=== PATIENT | male | born 1980 | race Caucasian/White ===

== ENCOUNTER 2023-11-20 12:44 | Emergency (ER) | payer OTHER, SELFPAY ==
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
[2023-11-20 12:46] VITALS: BP 128/68; PULSE 128; O2SAT 96
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
[2023-11-20 12:59] VITALS: BP 124/65; PULSE 101; RESP 22; TEMP 36.6; O2SAT 95; BMI 53.8
[2023-11-20] MEDS: hydrOXYzine HCL 50 MG TABLET PO (14:06)
[2023-11-20] MEDS: Nicotine Polacrilex 2 MG GUM BUCCAL (14:06)
[2023-11-20] MEDS: OLANZapine 10 MG TABLET PO (14:17)
--- NOTE | 2023-11-20 14:27 | PC.NURSE ---
Patient attempted to elope from dept x 3, security at bedside, waiting for provider to close lip lac, patient to go to pod after repair. Patient mildly compliant to redirection, currently standing in hallway singing the national anthem.
--- NOTE | 2023-11-20 14:56 | PC.NURSE ---
Patient urinated all over the floor, redirected back to sit on stretcher. VS stable.
[2023-11-20 14:57] VITALS: BP 141/84; PULSE 112; RESP 20; O2SAT 96
--- NOTE | 2023-11-20 15:25 | PC.NURSE ---
Provider attempted to elope department again, provider to bedside to speak with patient about repairing lip, patient refused. [facility]
--- NOTE | 2023-11-20 16:29 | PC.NURSE ---
Patient has again attempted to elope from the department, redirected back to room while singing daylin krishnan. POD RN Michael called, report given, patient will go to pod during next elopement attempt. Patient to return to [facility] via EMS, eta for EMS [id number].
--- NOTE | 2023-11-20 17:11 | PC.NURSE ---
Called Gregory, left message about patient returning w/ call back number if any questions.
[2023-11-20 17:38] VITALS: BP 141/84; PULSE 112; RESP 20; TEMP 36.6; O2SAT 96
== END 2023-11-20 17:40 | disposition home or self-care (01) ==
PROVIDERS: Emergency Provider Student in an Organized Health Care Education/Training Program
DX: S01.511A Laceration without foreign body of lip, initial encounter (principal); Y04.2XXA Assault by strike against or bumped into by another person, initial encounter; Y93.89 Activity, other specified; Y92.89 Other specified places as the place of occurrence of the external cause; Y99.9 Unspecified external cause status
CPT/HCPCS: 12011; 70450; 70486; 72125; 99284

== ENCOUNTER 2023-11-20 22:02 | Emergency (ER) | payer OTHER, SELFPAY ==
[2023-11-20 22:17] VITALS: BP 138/80; PULSE 64; O2SAT 98
[2023-11-20 22:22] VITALS: BP 105/45; PULSE 98; RESP 22; TEMP 36.6; O2SAT 97; BMI 47.9
--- NOTE | 2023-11-21 00:05 | ED.PSYCH ---
HPI - Psych General Chief Complaint: Behavioral Concerns Stated Complaint: WOUND CHECK Time Seen by Provider: 11/20/23 23:29 History of Present Illness HPI Narrative: Patient is a 43-year-old male had a laceration to his lower lip that was suture earlier in the day went back to the psych facility at approximately 17:30. Upon arrival patient physically removed his own stitches. Thought with staff. Patient was given medication including Haldol 10 mg, Benadryl 50 mg, Ativan 2 mg. On arrival to the emergency department patient is calm and cooperative has no complaints. He was able to ambulate to the bathroom without any difficulties. He denies any suicidal homicidal ideation. Related Data Previous Rx's ?Medication ?Instructions ?Recorded amoxicillin 875 mg-potassium 1 tab PO BID 10 days #20 tabs 11/20/23 clavulanate 125 mg tablet Allergies Allergy/AdvReac Type Severity Reaction Status Date / Time No Known Allergies Allergy Verified 11/20/23 22:23 Review of Systems Review of Systems: No fever no chills no chest pain or systemic complaints Yes all other systems are reviewed and are negative [facility] Past Medical History Attestation statement: The following information was validated with the patient. Social History Social History Unable to assess alcohol history related to: Refusing to respond Advance Directives: No Advance Directives Information Provided: No Physical Exam Vital Signs: Vital Signs: Last Vital Signs Temp 97.8 F 11/20/23 22:22 Pulse 98 11/20/23 22:22 Resp 22 H 11/20/23 22:22 BP 105/45 L 11/20/23 22:22 Pulse Ox 97 11/20/23 22:22 O2 Del Method Room Air 11/20/23 22:22 BMI result Body Mass Index 47.9 Appearance: Alert. Oriented X3. No acute distress. Eyes: Pupils equal, round and reactive to light. ENT: Pharynx normal. Lower lip showed a small laceration approximately 3 cm in size. Seems to be open. The sutures were all removed. Neck: Normal inspection. Neck supple. No lymph nodes noted. No crepitus CVS: Normal heart rate and rhythm. Pulses normal. Normal S1 and S2 Respiratory: No respiratory distress. Breath sounds normal. No Wheezing. No rales Abdomen: Soft and nontender. No rigidity. No distention. good BS x4 Skin: Skin warm and dry. Normal skin color. Normal skin turgor. Extremities: No lower extremity edema. Neurovascular intact to all extremities. No Lacerations. No Rash Neuro: Oriented X 3. No motor deficit. No sensory deficit. Moving all extermities. No slurred speech Medical Decision Making Medical Decision Making [facility] Narrative: [place] this time we should not try to close the wound given the wound is extremely 30. It was open earlier. Patient is cooperative not in any acute distress. Came from a psychiatric facility. Will contact [facility] about patient's disposition Nursing staff discussed with [facility]. They feel comfortable accepting patient back. He is in no acute distress. In stable condition. Differential Diagnosis Differential Diagnoses: The differential diagnosis associated with the presentation includes Laceration to the lip, agitation Lab Data [facility] Lab Attestation statement: I reviewed the patient's lab results. External Record Review External record reviewed: Outpatient record Prescription Management I considered prescription management with: Antibiotic No need for additional antibiotics. Patient already on Augmentin Chronic Conditions Psychiatric Discharge Plan Discharge Clinical Impression: Stress Patient Disposition: Home, Self-Care Instructions: Stress (ED) Prescriptions: No Action amoxicillin-pot clavulanate 875-125 mg tablet 1 tab PO BID 10 Days Qty: 20 0RF Referrals: Physician,None [Primary Care Provider] - 11/24/23 Print Language: [place]
[2023-11-21 01:13] VITALS: BP 00/00; PULSE 0; RESP 16; TEMP -17.7; TEMP 0
== END 2023-11-21 01:16 | disposition home or self-care (01) ==
PROVIDERS: Emergency Provider Emergency Medicine Emergency Medical Services
DX: F43.9 Reaction to severe stress, unspecified (principal); Z48.00 Encounter for change or removal of nonsurgical wound dressing
CPT/HCPCS: 99282

== ENCOUNTER 2023-11-23 13:39 | Inpatient (IN) | payer MEDICARE, SELFPAY ==
--- NOTE | ~2023-11-23 | CT_ITS ---
CT HEAD WITHOUT CONTRAST CLINICAL HISTORY: Altered mental status TECHNIQUE: CT of the brain was performed from the skull base through the vertex using a routine non-contrast protocol. All CT exams at this location are performed using dose optimization techniques as appropriate to a performed exam including at least one of the following: * Automated exposure control * Adjustment of the mA and/or kV according to patient size (this includes techniques or standardized protocols for targeted exams where dose is matched to indication / reason for exam; i/e/ extremities or head) * Use of iterative reconstructive technique DLP: 927 mGy-cm COMPARISON: None. RESULTS: There is no evidence of acute intracranial hemorrhage, acute large vessel infarct, midline shift or mass effect. The carranza-white differentiation is preserved. The ventricles and sulci are within normal limits in size and configuration. There is no evidence of hydrocephalus. There are no extraaxial collections. Osseous structures are intact. Paranasal sinuses and mastoid air cells are well aerated. CT/CT head/brain wo IV con IMPRESSION: Unremarkable non-contrast CT of the brain.
--- NOTE | ~2023-11-23 | CT_ITS ---
EXAMINATION: CT ANGIOGRAM CHEST CLINICAL INFORMATION: Abnormal chest x-ray COMPARISON: Chest x-ray on 11/23/2023 TECHNIQUE: Multiple axial images were obtained through the chest after the administration of 75 mL of Omnipaque 350 intravenous contrast. Extensive vascular post-processing including two-dimensional and three-dimensional reformatted images were created and reviewed on an independent workstation. This CT examination was performed using dose optimization techniques as appropriate, variously including the following: *Automated exposure control *Adjustment of mA and/or kV according to patient size (this includes techniques or standardized protocols for targeted exams where dose is matched to indication/reason for exam; i.e. extremities or head) *Use of iterative reconstruction technique DLP: 613 mGy-cm FINDINGS: Heart/Aorta: The heart is globally normal in size. The coronary arteries arise from the expected coronary sinuses; there is no anomaly of coronary arterial origin. The thoracic aorta is normal in course and caliber. There is no evidence of aortic dissection, intramural hematoma, or atherosclerotic penetrating ulcer. Aortic arch anatomy is conventional. Other Cardiovascular: The main pulmonary artery is normal in caliber. The well opacified portions of the pulmonary arterial system are patent. There is no pericardial effusion or pericardial thickening. Mediastinum/Gwen: Multiple prominent mediastinal lymph nodes. Pleura: The pleural surfaces are normal bilaterally. There is no pleural effusion. There is no pneumothorax. Lungs: Mild consolidation and tree-in-bud opacities of the bilateral lower lobes, left greater than right. Airways: The central airways are patent. The peripheral airways are normal. There is no bronchiectasis. Upper Abdomen: The incompletely imaged upper abdomen is unremarkable. Musculoskeletal: There is no aggressive osseous lesion. The structures of the chest wall, including the bones, are normal for age. CT/CT angio chest aorta IMPRESSION: 1. No acute aortic abnormality. 2. Mild consolidation and tree-in-bud opacities of the bilateral lower lobes, left greater than right, likely infectious/inflammatory in etiology. 3. Multiple prominent mediastinal lymph nodes, likely reactive.
--- NOTE | ~2023-11-23 | XR_ITS ---
EXAMINATION: XR CHEST CLINICAL INFORMATION: Chest pain COMPARISON: None available. TECHNIQUE: Frontal view of the chest was obtained. FINDINGS: Heart is normal in size. There is some widening of the superior mediastinum especially in the right paratracheal stripe. There is increased perihilar groundglass opacities. No pleural effusions. Plate-screw fixation with old fracture of the left clavicle XR/XR chest 1V IMPRESSION: 1. Widening of the superior mediastinum. Recommend further evaluation with CT scan of the chest. 2. Increased perihilar groundglass opacities.
[2023-11-23 13:46] VITALS: BP 123/77; BP 86/50; PULSE 74; PULSE 76; RESP 18; TEMP 36.7; O2SAT 98; BMI 50.7
--- NOTE | 2023-11-23 13:46 | ECG_ITS ---
Test Reason : CHEST PAIN Blood Pressure : / mmHG Vent. Rate : 076 BPM Atrial Rate : 076 BPM P-R Int : 164 ms QRS Dur : 090 ms QT Int : 374 ms P-R-T Axes : 065 070 054 degrees QTc Int : 420 ms Artifact in tracing Normal sinus rhythm Normal ECG No previous ECGs available Referred By: Mani Recinos Electronically Signed By:SOPHIA BERMUDEZ
[2023-11-23 13:50] LABS: Glucose, Whole Blood 84 mg/dL (60-115)
[2023-11-23 13:51] VITALS: BP 123/77; PULSE 74; RESP 18; TEMP 36.7; O2SAT 98
[2023-11-23 14:20] LABS: MANUAL DIFF FLAG NO
[2023-11-23 14:21] LABS: Basophils Percent Auto 0.5 % (0-2); Eosinophils Absolute Auto 0.1 X10*3/uL (0.0-0.4); Eosinophils Percent Auto 1.7 % (0-4); Hemoglobin 12.3 g/dl (14.0-18.0); Imm Gran Abs Auto 0.05 X10*3/uL (0.00-0.03); Imm Gran Pct Auto 0.8 % (0.0-0.4); Lymphocytes Absolute Auto 1.1 X10*3/uL (1.2-4.9); Lymphocytes Percent Auto 16.7 % (20-40); Mean Corpuscular HGB Conc 33.2 g/dl (31.0-36.0); Mean Corpuscular Volume 87.3 fL (80.0-98.0); Mean Platelet Volume 10.3 fL (9.4-12.4); Monocytes Absolute Auto 0.7 X10*3/uL (0.1-1.2); Monocytes Percent Auto 11.2 % (2-11); Neutrophils Absolute Auto 4.6 x10*3/uL (2.0-8.3); Neutrophils Percent Auto 69.1 % (45-73); Platelet Count 210 X10*3/uL (160-400); Red Blood Count 4.24 X10*6/uL (4.60-5.80); Red Cell Distribution Width 13.5 % (11.0-16.0); White Blood Count 6.6 X10*3/uL (4.8-10.8)
--- NOTE | 2023-11-23 14:26 | ED_ITS ---
HPI - General Adult General Chief complaint: General Medical Stated complaint: HYPOTENSION ABNORMAL LABS Time Seen by Provider: 11/23/23 13:51 Source: EMS Mode of arrival: EMS History of Present Illness HPI narrative: This is a 43 years old male sent to the emergency department from [facility] cause more lethargic. According to [facility] he has ammonia level was 47. Also they reported that he was hypotensive with a blood pressure 95/56. The patient was admitted to the psychiatric facility on November 16 from [facility], he has history of bipolar disorder and prior psych inpatient hospitalization. Onset (ago): day(s) (1) Radiation: non-radiation Severity: moderate Treatments prior to arrival: none Related Data Home Medications ?Medication ?Instructions ?Recorded ?Confirmed acetaminophen 325 mg tablet 650 mg PO Q4H PRN Pain 11/23/23 11/23/23 albuterol sulfate 90 mcg/actuation 2 puff inhalation Q4H PRN 11/23/23 11/23/23 aerosol inhaler Shortness Of Breath Or Wheezing atorvastatin 80 mg tablet 80 mg PO BEDTIME 11/23/23 11/23/23 benzocaine 15 mg-menthol 3.6 mg 1 zonia mucous membrane Q2H PRN Sore 11/23/23 11/23/23 lozenges Throat benztropine 1 mg tablet 2 mg PO BID 11/23/23 11/23/23 chlorpromazine 100 mg tablet 100 mg PO Q8H PRN 11/23/23 11/23/23 agitation/psychosis diphenhydramine HCl 50 mg capsule 50 mg PO BEDTIME 11/23/23 11/23/23 diphenhydramine HCl 50 mg capsule 50 mg PO Q8H PRN Anxiety 11/23/23 11/23/23 divalproex 500 mg tablet,extended 1,000 mg PO BID 11/23/23 11/23/23 release 24 hr docusate sodium 100 mg capsule 100 mg PO BID PRN Constipation 11/23/23 11/23/23 hydrocortisone 1 % topical cream 1 appl topical BID Hemorrhoids 11/23/23 11/23/23 ibuprofen 400 mg tablet 800 mg PO Q6H PRN 11/23/23 11/23/23 Body-ache/toothache lactulose 10 gram/15 mL (15 mL) 20 g PO DAILY 11/23/23 11/23/23 oral solution levothyroxine 75 mcg tablet 75 mcg PO DAILY 11/23/23 11/23/23 lidocaine 4 % topical patch 2 patch topical DAILY 11/23/23 11/23/23 lisinopril 20 mg tablet 40 mg PO DAILY 11/23/23 11/23/23 lorazepam 1 mg tablet 2 mg PO BEDTIME 11/23/23 11/23/23 lorazepam 1 mg tablet 2 mg PO BID PRN Anxiety 11/23/23 11/23/23 melatonin 3 mg tablet 6 mg PO BEDTIME PRN Sleep 11/23/23 11/23/23 metoprolol succinate 25 mg 25 mg PO DAILY 11/23/23 11/23/23 tablet,extended release 24 hr nicotine (polacrilex) 2 mg gum 2 mg buccal Q2H PRN Nicotine 11/23/23 11/23/23 Cravings nicotine 21 mg/24 hr daily 1 patch transdermal DAILY 11/23/23 11/23/23 transdermal patch pantoprazole 40 mg tablet,delayed 40 mg PO DAILY 11/23/23 11/23/23 release Previous Rx's ?Medication ?Instructions ?Recorded amoxicillin 875 mg-potassium 1 tab PO BID 10 days #20 tabs 11/20/23 clavulanate 125 mg tablet Allergies Allergy/AdvReac Type Severity Reaction Status Date / Time No Known Allergies Allergy Verified 11/23/23 13:48 Review of Systems 2 Review of Systems: Yes Unobtainable due to mental condition [facility] Past Medical History Medical History History of substance abuse HTN (hypertension) Bipolar disorder GERD (gastroesophageal reflux disease) Social History Social History Unable to assess alcohol history related to: Refusing to respond Patient Tobacco Use Status: Current everyday Tobacco user Advance Directives: No Advance Directives Information Provided: No Do you have a plan to hurt others: No Plan Nutrition Risks: No Nutritional Risk Physical Exam ED Vital Signs: Vital Signs - 24 hr 11/23/23 13:46 11/23/23 13:51 11/23/23 16:47 Temperature 98.1 F 98.1 F 97.3 F Pulse Rate 74 74 77 Respiratory Rate 18 18 24 H Blood Pressure 123/77 123/77 108/53 L Pulse Oximetry 98 98 98 Oxygen Delivery Method Room Air Room Air Aerosol Mask BMI result Body Mass Index 50.7 He is lethargic but easily arousable he is able to give me his name Const General: well developed and patient obtunded Nutritional Appearance: obese Orientation/consciousness: patient obtunded HENMT Head: Yes normal to inspection Mouth: Normal oral and palatal mucosa present Neck Neck: Yes normal visual inspection Chest Chest palpation & inspection: normal inspection of the chest Resp Effort & Inspection: normal respiratory effort Cardio Jugular venous distension: no JVD GI Inspection: Yes normal to inspection Palpation (GI): Soft to palpation, not firm and nontender Auscultation: normal bowel sounds Skin General skin exam: no rashes or lesions noted and elasticity normal Neuro Other: Patient is lethargic but arousable he is able to tell me his name. General: patient obtunded Course Reevaluation(s) Reevaluation #1: VBG essentially normal ammonia level is normal, lactic acid also is normal. He is normotensive here afebrile. He is hyponatremic with a sodium of 123 anticipate admission Medications Administered Generic Name Dose Route Start Last Admin Trade Name Freq PRN Reason Stop Dose Admin Amoxicillin/Clavulanate Potassium 875 mg 11/23/23 21:00 11/23/23 20:43 Amoxicillin/Potassium Clav 875 Mg Tablet PO 875 mg BID DELORIS Administration Atorvastatin Calcium 80 mg 11/23/23 21:00 11/23/23 20:44 Atorvastatin Calcium 80 Mg Tablet PO 80 mg BEDTIME DELORIS Administration Benztropine Mesylate 2 mg 11/23/23 21:00 11/23/23 20:43 Benztropine Mesylate 1 Mg Tablet PO 2 mg BID DELORIS Administration Chlorpromazine HCl 100 mg 11/23/23 17:47 11/23/23 21:48 Chlorpromazine Hcl 100 Mg Tablet PO 100 mg Q8H PRN Administration agitation/psychosis Diphenhydramine HCl 25 mg 11/23/23 21:00 11/23/23 20:44 Diphenhydramine Hcl 25 Mg Capsule PO 25 mg BEDTIME DELORIS Administration Diphenhydramine HCl 25 mg 11/23/23 17:47 11/24/23 04:39 Diphenhydramine Hcl 25 Mg Capsule PO 25 mg Q8H PRN Administration Anxiety Divalproex Sodium 1,000 mg 11/23/23 21:00 11/23/23 20:43 Divalproex Sodium Er 500 Mg Tab.Er.24h PO 1,000 mg BID DELORIS Administration Enoxaparin Sodium 40 mg 11/23/23 20:00 11/23/23 20:42 Enoxaparin Sodium 40 Mg/0.4 Ml Syringe SUBCUT 40 mg Q24H DELORIS Administration Hydrocortisone 1 appl 11/23/23 21:00 11/23/23 20:43 Hydrocortisone 1 % Cream 28.35 Gm Tube TOPICAL 1 appl BID DELORIS Administration Protocol Ibuprofen 800 mg 11/23/23 17:47 11/24/23 04:41 Ibuprofen 800 Mg Tablet PO 800 mg Q6H PRN Administration Body-ache/toothache Levothyroxine Sodium 75 mcg 11/24/23 06:00 11/24/23 05:34 Levothyroxine Sodium 75 Mcg Tablet PO 75 mcg DAILY@0600 DELORIS Administration Lorazepam 1 mg 11/23/23 21:00 11/23/23 20:43 Lorazepam 1 Mg Tablet PO 1 mg BEDTIME DELORIS Administration Lorazepam 1 mg 11/23/23 17:47 11/24/23 04:38 Lorazepam 1 Mg Tablet PO 1 mg BID PRN Administration Anxiety Omeprazole 20 mg 11/24/23 06:30 11/24/23 05:34 Omeprazole 20 Mg Capsule.Dr PO 20 mg DAILY@0630 [facility] Administration Sodium Chloride 3 ml 11/24/23 00:00 11/24/23 00:54 0.9 % Sodium Chloride Flush 3 Ml Syringe IVFLUSH Not Given QSHIFT DELORIS Discontinued Medications Generic Name Dose Route Start Last Admin Trade Name Nicolásq PRN Reason Stop Dose Admin Albuterol Sulfate 4 puff 11/23/23 19:44 11/23/23 22:57 Albuterol Sulfate 90 Mcg 8 Gm Inhaler INHALE 11/23/23 19:45 Not Given ONCE ONE Sodium Chloride 1,000 mls @ 999 mls/hr 11/23/23 14:00 11/23/23 15:20 Ns IVCONT 11/23/23 15:00 Infused .Q1H1M DELORIS Infusion Sodium Chloride 1,000 mls @ 125 mls/hr 11/23/23 15:00 11/23/23 19:45 Ns IVCONT 11/24/23 01:14 0 mls/hr .Q8H DELORIS Infusion Iohexol 100 ml 11/23/23 15:59 11/23/23 15:59 Iohexol 350 Mg/Ml 100 Ml Infus..Btl IV 11/23/23 16:00 75 ml ONCE ONE Administration Sodium Chloride 2 gm 11/23/23 20:05 11/23/23 20:43 Sodium Chloride Tab 1 Gm Tablet PO 11/23/23 20:06 2 gm ONCE ONE Administration Sodium Zirconium Cyclosilicate 10 gm 11/23/23 19:43 11/23/23 20:42 Sodium Zirconium Cyclosilicate 10 Gm Powd.Pack PO 11/23/23 19:44 10 gm ONCE ONE Administration Procedures EJ/Peripheral Line Arm R: Time Out Performed: Yes Skin Cleansed in Sterile Fashion: Yes Size (gauge): 18 IV Secured and Dressing Applied: Yes Patient Tolerated Procedure: well Additional Comments: I was asked by RN to place an IV difficult IV access, under ultrasound-guided cannulated right deep brachial vein with 18 gauge catheter labs obtain good flash. Medical Decision Making Medical Decision Making [facility] Narrative: Patient is a we may altered mental status we get labs ammonia VBG Differential Diagnosis Differential Diagnoses: The differential diagnosis associated with the presentation includes Hyperammonemia hypercapnic respiratory failure Admission/Observation Consideration of admission/observation: Escalation of care including admission/observation considered Consult Healthcare Provider Management of the patient was discussed with: Hospitalist Lab Data [facility] Lab Attestation statement: I reviewed the patient's lab results. 11/24/23 06:13 11/24/23 06:13 Labs: Lab Results 11/23/23 11/23/23 11/23/23 Range/Units 13:46 14:15 14:19 WBC 6.6 (4.8-10.8) X10*3/uL RBC 4.24 L (4.60-5.80) X10*6/uL Hgb 12.3 L (14.0-18.0) g/dl Hct 37.0 L (42.0-52.0) % MCV 87.3 (80.0-98.0) fL MCH 29.0 (27.0-33.0) pg MCHC 33.2 (31.0-36.0) g/dl RDW 13.5 (11.0-16.0) % Plt Count 210 (160-400) X10*3/uL MPV 10.3 (9.4-12.4) fL Immature Gran % (Auto) 0.8 H (0.0-0.4) % Neut % (Auto) 69.1 (45-73) % Lymph % (Auto) 16.7 L (20-40) % Newton % (Auto) 11.2 H (2-11) % Eos % (Auto) 1.7 (0-4) % Baso % (Auto) 0.5 (0-2) % Lymph # (Auto) 1.1 L (1.2-4.9) X10*3/uL Newton # (Auto) 0.7 (0.1-1.2) X10*3/uL Eos # (Auto) 0.1 (0.0-0.4) X10*3/uL Baso # (Auto) 0.0 (0.0-0.2) X10*3/uL Abs Immat Gran (auto) 0.05 H (0.00-0.03) X10*3/uL Absolute Neuts (auto) 4.6 (2.0-8.3) x10*3/uL Absolute Nucleated RBC 0.000 (0.0-0.012) X10*3/uL Nucleated RBC % (auto) 0.0 (0.0-0.2) /100WBC VBG pH 7.44 H (7.32-7.43) VBG pCO2 34 mmHg VBG pO2 48 mmHg VBG HCO3 23 (22-26) mmol/L VBG O2 Saturation 79.0 % VBG Base Excess 0.3 mmol/L Sodium 123 L (135-145) mmol/L Potassium 5.1 (3.3-5.1) mmol/L Chloride 90 L (96-108) mmol/L Carbon Dioxide 24 (22-29) mmol/L Anion Gap 14 (12-20) BUN 22 H (9-16) mg/dL Creatinine 1.29 (0.5-1.4) mg/dL Estim Creat Clear Calc 110.3 Estimated GFR > 60 POC Glucose 84 (60-115) mg/dL Random Glucose 83 (60-115) mg/dL Osmolality (281-305) mosm/kg Lactic Acid (0.5-2.0) mmol/L Calcium 9.1 (8.4-10.2) mg/dL Total Bilirubin 0.4 (0.0-1.0) mg/dL AST 21 (5-37) U/L ALT 20 (0-40) U/L Alkaline Phosphatase 35 L (39-117) U/L Ammonia 29 (13-55) umol/L Troponin I High Sens < 2.7 (<3.5-35.0) ng/L Total Protein 6.5 (6.5-8.0) g/dL Albumin 3.7 (3.5-5.0) g/dL TSH 6.58 H (0.32-4.0) uIU/mL Free T4 0.93 (0.71-1.85) ng/dL Urine Color Urine Appearance Urine pH (5.0-9.0) Ur Specific Sagle (1.005-1.025) Urine Protein (Neg-Trace) mg/dL Urine Glucose (UA) (Negative) mg/dL Urine Ketones (Negative) mg/dL Urine Blood (Negative) Urine Nitrite (Negative) Ur Leukocyte Esterase (Negative) Urine RBC (0-2) /HPF Urine WBC (0-5) /HPF Ur Squamous Epith Cells (0-2) /HPF Urine Bacteria (None Seen) Hyaline Casts (0-2) /LPF Urine Osmolality (373-1093) mosm/kg Ur Random Sodium mmol/L Urine Creatinine mg/dL Urine Opiates Screen (Not Detect) Ur Buprenorphine Scrn (Not Detect) ng/mL Ur Oxycodone Screen (Not Detect) ng/mL Urine Methadone Screen (Not Detect) ng/mL Urine Fentanyl Screen (Not Detect) Ur Barbiturates Screen (Not Detect) Valproic Acid (50.0-100.0) mcg/mL Ur Phencyclidine Scrn (Not Detect) Ur Amphetamines Screen (Not Detect) U Benzodiazepines Scrn (Not Detect) Urine Cocaine Screen (Not Detect) U Marijuana (THC) Screen (Not Detect) 11/23/23 11/23/23 11/23/23 Range/Units 14:37 15:34 17:24 WBC (4.8-10.8) X10*3/uL RBC (4.60-5.80) X10*6/uL Hgb (14.0-18.0) g/dl Hct (42.0-52.0) % MCV (80.0-98.0) fL MCH (27.0-33.0) pg MCHC (31.0-36.0) g/dl RDW (11.0-16.0) % Plt Count (160-400) X10*3/uL MPV (9.4-12.4) fL Immature Gran % (Auto) (0.0-0.4) % Neut % (Auto) (45-73) % Lymph % (Auto) (20-40) % Newton % (Auto) (2-11) % Eos % (Auto) (0-4) % Baso % (Auto) (0-2) % Lymph # (Auto) (1.2-4.9) X10*3/uL Newton # (Auto) (0.1-1.2) X10*3/uL Eos # (Auto) (0.0-0.4) X10*3/uL Baso # (Auto) (0.0-0.2) X10*3/uL Abs Immat Gran (auto) (0.00-0.03) X10*3/uL Absolute Neuts (auto) (2.0-8.3) x10*3/uL Absolute Nucleated RBC (0.0-0.012) X10*3/uL Nucleated RBC % (auto) (0.0-0.2) /100WBC VBG pH (7.32-7.43) VBG pCO2 mmHg VBG pO2 mmHg VBG HCO3 (22-26) mmol/L VBG O2 Saturation % VBG Base Excess mmol/L Sodium (135-145) mmol/L Potassium (3.3-5.1) mmol/L Chloride (96-108) mmol/L Carbon Dioxide (22-29) mmol/L Anion Gap (12-20) BUN (9-16) mg/dL Creatinine (0.5-1.4) mg/dL Estim Creat Clear Calc Estimated GFR POC Glucose (60-115) mg/dL Random Glucose (60-115) mg/dL Osmolality 272 L (281-305) mosm/kg Lactic Acid 0.8 (0.5-2.0) mmol/L Calcium (8.4-10.2) mg/dL Total Bilirubin (0.0-1.0) mg/dL AST (5-37) U/L ALT (0-40) U/L Alkaline Phosphatase (39-117) U/L Ammonia (13-55) umol/L Troponin I High Sens (<3.5-35.0) ng/L Total Protein (6.5-8.0) g/dL Albumin (3.5-5.0) g/dL TSH (0.32-4.0) uIU/mL Free T4 (0.71-1.85) ng/dL Urine Color Yellow Urine Appearance Clear Urine pH 6.0 (5.0-9.0) Ur Specific Sagle 1.010 (1.005-1.025) Urine Protein Negative (Neg-Trace) mg/dL Urine Glucose (UA) Negative (Negative) mg/dL Urine Ketones Negative (Negative) mg/dL Urine Blood Negative (Negative) Urine Nitrite Negative (Negative) Ur Leukocyte Esterase Negative (Negative) Urine RBC 0-2 (0-2) /HPF Urine WBC 0-5 (0-5) /HPF Ur Squamous Epith Cells 0-2 (0-2) /HPF Urine Bacteria None Seen (None Seen) Hyaline Casts 0-2 (0-2) /LPF Urine Osmolality 212 L (373-1093) mosm/kg Ur Random Sodium < 20.0 mmol/L Urine Creatinine 54.49 mg/dL Urine Opiates Screen Not Detected (Not Detect) Ur Buprenorphine Scrn Not Detected (Not Detect) ng/mL Ur Oxycodone Screen Not Detected (Not Detect) ng/mL Urine Methadone Screen Not Detected (Not Detect) ng/mL Urine Fentanyl Screen Not Detected (Not Detect) Ur Barbiturates Screen Not Detected (Not Detect) Valproic Acid 57.7 (50.0-100.0) mcg/mL Ur Phencyclidine Scrn Not Detected (Not Detect) Ur Amphetamines Screen Not Detected (Not Detect) U Benzodiazepines Scrn Not Detected (Not Detect) Urine Cocaine Screen Not Detected (Not Detect) U Marijuana (THC) Screen Not Detected (Not Detect) Independent Interpretation I performed an independent interpretation of an: EKG Interpretation: Sinus tachycardia rate [address]-T changes Independent Historian Clinical information obtained from an independent historian. History obtained from or confirmed by: EMS and Other (record from [facility]) Critical Care Time Critical Care Time Critical Care Time: Yes Total Critical Care Time: 60 Attestation: altered mental status,hyponatremia,speaking to EMS,reviewing record from [facility] hospital,taking care of the pt and talking to hospitalist Discharge Plan Discharge Clinical Impression: Acute hyponatremia Altered mental status Qualifiers: Altered mental status type: unspecified Qualified Code(s): R41.82 - Altered mental status, unspecified Patient Disposition: Admitted As Inpatient
[2023-11-23 14:27] LABS: VBG Base Excess 0.3 mmol/L; VBG HCO3 23 mmol/L (22-26); VBG pCO2 34 mmHg; VBG pH 7.44 (7.32-7.43); VBG pO2 48 mmHg
[2023-11-23 14:29] LABS: Ammonia 29 umol/L (13-55)
[2023-11-23 14:29] LABS: Venous Blood Gas Refer to POC result
[2023-11-23 14:36] LABS: Alanine Aminotransferase 20 U/L (0-40); Albumin Level 3.7 g/dL (3.5-5.0); Alkaline Phosphatase 35 U/L (39-117); Anion Gap 14 (12-20); Aspartate Amino Transferase 21 U/L (5-37); Bilirubin Total 0.4 mg/dL (0.0-1.0); Blood Urea Nitrogen 22 mg/dL (9-16); Calcium 9.1 mg/dL (8.4-10.2); Carbon Dioxide 24 mmol/L (22-29); Chloride 90 mmol/L (96-108); Creatinine Clr Calc Pharmacy 110.3; Estimated Glomerular Filt Rate > 60; Glucose Random 83 mg/dL (60-115); Potassium 5.1 mmol/L (3.3-5.1); Sodium 123 mmol/L (135-145); Total Protein 6.5 g/dL (6.5-8.0)
[2023-11-23] MEDS: 0.9 % Sodium Chloride 1,000 ML 999 ML IVCONT (14:39)
[2023-11-23 14:51] LABS: Troponin-I High Sensitivity < 2.7 ng/L (<3.5-35.0)
[2023-11-23] MEDS: 0.9 % Sodium Chloride 1,000 ML 100 ML IVCONT (14:59)
[2023-11-23 15:01] LABS: Lactic Acid 0.8 mmol/L (0.5-2.0)
[2023-11-23 15:37] LABS: Thyroid Stimulating Hormone 6.58 uIU/mL (0.32-4.0)
[2023-11-23 15:43] LABS: Appearance Urine Clear; Color Urine Yellow; Glucose Urine UA Negative (Negative); Leukocyte Esterase Urine Negative (Negative); Nitrite Urine Negative (Negative); Urine Blood Negative (Negative); Urine Ketones Negative (Negative); Urine Protein Negative (Neg-Trace)
[2023-11-23 15:48] LABS: Bacteria Urine None Seen (None Seen); Hyaline Casts Urine 0-2 /LPF (0-2); RBC Urine 0-2 /HPF (0-2); Squamous Epithelial Cell Urine 0-2 /HPF (0-2); WBC Urine 0-5 /HPF (0-5)
[2023-11-23 15:53] LABS: Amphetamine Screen Urine Not Detected (Not Detect); Barbiturates, Urine Not Detected (Not Detect); Benzodiazepines Screen Urine Not Detected (Not Detect); Buprenorphine Scr Not Detected (Not Detect); Cannabinoid Screen Urine Not Detected (Not Detect); Cocaine Screen Urine Not Detected (Not Detect); Fentanyl, urine Not Detected (Not Detect); Methadone Screen, Urine Not Detected (Not Detect); Opiate Screen Urine Not Detected (Not Detect); Oxycodone Screen Urine Not Detected (Not Detect); Phencyclidine Screen Urine Not Detected (Not Detect)
[2023-11-23] MEDS: iohexoL 350 MG/ML 100 ML INFUS..BTL IV (15:59)
[2023-11-23 16:11] LABS: Creatinine Urine 54.49 mg/dL; Osmolality Urine 212 mosm/kg (373-1093); Sodium Urine Random < 20.0 mmol/L
--- NOTE | 2023-11-23 16:18 | PHA.MEDREC ---
Pharmacy Consult ? Medication Reconciliation Pharmacy has completed the medication reconciliation. Used list from facility. There is a haloperidol injection 100mg/mL - 1mL Q28 days to start 12/04/23
[2023-11-23 16:47] VITALS: BP 108/53; PULSE 77; RESP 24; TEMP 36.3; O2SAT 98
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
[2023-11-23 17:37] LABS: Osmolality, Serum 272 mosm/kg (281-305)
[2023-11-23 17:42] LABS: Valproate 57.7 mcg/mL (50.0-100.0)
[2023-11-23 18:10] VITALS: PULSE 78; RESP 25; O2SAT 94
[2023-11-23 18:42] LABS: Free T4 (Free Thyroxine) 0.93 ng/dL (0.71-1.85)
[2023-11-23 19:41] LABS: Anion Gap 16 (12-20); Blood Urea Nitrogen 20 mg/dL (9-16); Calcium 9.1 mg/dL (8.4-10.2); Carbon Dioxide 19 mmol/L (22-29); Chloride 93 mmol/L (96-108); Creatinine Clr Calc Pharmacy 127.1; Estimated Glomerular Filt Rate > 60; Glucose Random 75 mg/dL (60-115); Sodium 122 mmol/L (135-145)
--- NOTE | 2023-11-23 19:45 | PM.EVENT ---
Event Note Date of Service: 11/23/23 Event Note: Pt remains hyponatremic at 122, now with K 6.3 but moderate hymolysis. Resume IV NS @ 100ml/hr. 10 lokelma and albuterol ordered. Nephro consult. Repeat lytes @12am. Time Spent With Patient Time: Total time managing care of this patient today ____ minutes.
[2023-11-23 19:49] LABS: Potassium 6.3 mmol/L (3.3-5.1)
[2023-11-23 20:38] LABS: Anion Gap 14 (12-20); Carbon Dioxide 26 mmol/L (22-29); Chloride 91 mmol/L (96-108); Potassium 5.9 mmol/L (3.3-5.1); Sodium 125 mmol/L (135-145)
[2023-11-23] MEDS: Enoxaparin Sodium 40 MG/0.4 ML SYRINGE SUBCUT (20:42)
[2023-11-23] MEDS: Sodium Zirconium Cyclosilicate 10 GM POWD.PACK PO (20:42)
[2023-11-23] MEDS: Hydrocortisone 1 % Cream 28.35 GM TUBE 1 APPL TOPICAL (20:43)
[2023-11-23] MEDS: Divalproex Sodium ER 500 MG TAB.ER.24H 1000 MG PO (20:43)
[2023-11-23] MEDS: Sodium Chloride Tab 1 GM TABLET 2 GM PO (20:43)
[2023-11-23] MEDS: Amoxicillin/Potassium Clav 875 MG TABLET PO (20:43)
[2023-11-23] MEDS: Benztropine Mesylate 1 MG TABLET 2 MG PO (20:43)
[2023-11-23] MEDS: LORazepam 1 MG TABLET PO (20:43)
[2023-11-23] MEDS: diphenhydrAMINE HCL 25 MG CAPSULE PO (20:44)
[2023-11-23] MEDS: Atorvastatin Calcium 80 MG TABLET PO (20:44)
--- NOTE | 2023-11-23 20:58 | PC.NURSE ---
Pt tearful, ripped both his IVs out, refusing new IV placement, Dr. Adams made aware. States I am crying because my nephew just , I just have a feeling he did . Pt swearing at staff to get out of room. Pt redirected. Pt medicated per JUL.
[2023-11-23] MEDS: chlorproMAZINE HCl 100 MG TABLET PO (21:48)
--- NOTE | 2023-11-23 22:22 | PC.NURSE ---
Pt requesting to ambulate to BR, escorted by staff, Pt states this is a super [employer] and I need preparation H, Vicks or aloe for my hemorrhoids . Pt given barrier cream, spend 20 minutes in BR, Pt lathered up from head to toe in barrier cream. States you are fired and ambulated back into room. Pt speaking to self.
--- NOTE | 2023-11-23 22:30 | PC.NURSE ---
Pt continues to refuse IV access.
[2023-11-24] VITALS (10 sets, daily range): BP systolic 102–154; BP diastolic 51–90; PULSE 77–100; RESP 13–20; TEMP 36.1–36.6; O2SAT 95–99; BMI 50.6
--- NOTE | 2023-11-24 00:27 | PC.NURSE ---
Pt appears to be sleeping, apneic breathing, pt refused his CPAP machine.
--- NOTE | 2023-11-24 02:14 | PC.NURSE ---
RT at bedside, placed Pt on CPAP.
[2023-11-24 03:01] LABS: Anion Gap 15 (12-20); Carbon Dioxide 24 mmol/L (22-29); Chloride 93 mmol/L (96-108); Potassium 5.7 mmol/L (3.3-5.1); Sodium 126 mmol/L (135-145)
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
--- NOTE | 2023-11-24 04:11 | PC.NURSE ---
Pt ambulated to BR with staff, Pt in bathroom for over 10 minutes lathering head/face with hand soap. New gown given. Pt requesting PO fluids.
[2023-11-24] MEDS: LORazepam 1 MG TABLET PO ×3 (04:38→21:39)
[2023-11-24] MEDS: diphenhydrAMINE HCL 25 MG CAPSULE PO ×3 (04:39→21:39)
[2023-11-24] MEDS: Ibuprofen 800 MG TABLET PO ×2 (04:41→19:11)
--- NOTE | 2023-11-24 04:50 | PC.NURSE ---
Pt threw remote control at staff after being told gift shop was closed, Pt questing to go to [employer] to buy sunglasses. Pt medicated per JUL.
[2023-11-24] MEDS: Levothyroxine Sodium 75 MCG TABLET PO (05:34)
[2023-11-24] MEDS: Omeprazole 20 MG CAPSULE.DR PO (05:34)
--- NOTE | 2023-11-24 06:16 | PC.NURSE ---
Pt agreeable to blood work collection and new IV placement. New IV line wrapped with gauze. Blood work collected and sent to lab.
[2023-11-24 06:17] LABS: MANUAL DIFF FLAG NO
[2023-11-24 06:18] LABS: Basophils Percent Auto 0.2 % (0-2); Eosinophils Absolute Auto 0.1 X10*3/uL (0.0-0.4); Eosinophils Percent Auto 0.7 % (0-4); Hematocrit 36.5 % (42.0-52.0); Hemoglobin 12.3 g/dl (14.0-18.0); Imm Gran Abs Auto 0.05 X10*3/uL (0.00-0.03); Imm Gran Pct Auto 0.6 % (0.0-0.4); Lymphocytes Absolute Auto 0.8 X10*3/uL (1.2-4.9); Lymphocytes Percent Auto 9.4 % (20-40); Mean Corpuscular HGB Conc 33.7 g/dl (31.0-36.0); Mean Corpuscular Hemoglobin 28.9 pg (27.0-33.0); Mean Corpuscular Volume 85.9 fL (80.0-98.0); Mean Platelet Volume 9.4 fL (9.4-12.4); Monocytes Absolute Auto 0.6 X10*3/uL (0.1-1.2); Monocytes Percent Auto 7.3 % (2-11); Neutrophils Absolute Auto 6.9 x10*3/uL (2.0-8.3); Neutrophils Percent Auto 81.8 % (45-73); Platelet Count 256 X10*3/uL (160-400); Red Blood Count 4.25 X10*6/uL (4.60-5.80); Red Cell Distribution Width 13.5 % (11.0-16.0); White Blood Count 8.4 X10*3/uL (4.8-10.8)
[2023-11-24 06:35] LABS: Anion Gap 16 (12-20); Blood Urea Nitrogen 18 mg/dL (9-16); Calcium 9.3 mg/dL (8.4-10.2); Carbon Dioxide 26 mmol/L (22-29); Chloride 90 mmol/L (96-108); Creatinine Clr Calc Pharmacy 136.9; Estimated Glomerular Filt Rate > 60; Glucose Random 110 mg/dL (60-115); Potassium 5.2 mmol/L (3.3-5.1); Sodium 127 mmol/L (135-145)
[2023-11-24 06:53] LABS: Cortisol Random 11.7 ug/dL
--- NOTE | 2023-11-24 07:05 | P.PNIM_ITS ---
Subjective Subjective Date of Service: 11/24/23 Interval History: Seen in follow-up for hyponatremia Interval history: Patient remains confused, manic. Sodium slightly improved to 127 with improved potassium to 5.3 though noted to be slightly hemolyzed Review of Systems Review of Systems: Yes all other systems are reviewed and are negative Physical Exam 2 Vital Signs: Vital Signs: Last Vital Signs Temp 97.3 F 11/23/23 16:47 Pulse 97 11/24/23 06:20 Resp 20 11/24/23 06:20 BP 115/51 L 11/24/23 06:20 Pulse Ox 95 11/24/23 06:20 O2 Del Method Room Air 11/24/23 06:20 BMI result Body Mass Index 50.7 Constitutional - Awake and Alert, No apparent distress Eyes - PERRLA, EOMI Cardiovascular - S1S2, RRR, No edema Respiratory - Normal lung expansion, Normal respiratory effort, No respiratory distress, CTA bilaterally Gastrointestinal - NT / ND; +BS; No rebound or guarding Extremities - no calf tenderness bilaterally, no swelling Skin - Warm/Dry Neurological/psych - Alert & oriented to self, flight of idea, delusional Objective Data Active Medications Acetaminophen (Acetaminophen 325 Mg Tablet) 650 mg PO Q6H PRN PRN Reason: Pain, Mild (Pain Scale 1-3), fever or headache Albuterol Sulfate (Albuterol Sulfate 90 Mcg 8 Gm Inhaler) 2 puff INHALE Q4H PRN PRN Reason: Shortness Of Breath Or Wheezing Amoxicillin/Clavulanate Potassium (Amoxicillin/Potassium Clav 875 Mg Tablet) 875 mg PO BID [facility] Last Admin: 11/23/23 20:43 Dose: 875 mg Documented By: JOHN Atorvastatin Calcium (Atorvastatin Calcium 80 Mg Tablet) 80 mg PO BEDTIME [facility] Last Admin: 11/23/23 20:44 Dose: 80 mg Documented By: JOHN Benzocaine (Throat Lozenge, Medicated Lozenge) 1 lozenge MUCOUS MEM Q2H PRN PRN Reason: Sore Throat Benztropine Mesylate (Benztropine Mesylate 1 Mg Tablet) 2 mg PO BID [facility] Last Admin: 11/23/23 20:43 Dose: 2 mg Documented By: JOHN Calcium Carbonate (Calcium Carbonate 750 Mg Tab.Chew) 750 mg PO Q4H PRN PRN Reason: Heartburn Chlorpromazine HCl (Chlorpromazine Hcl 100 Mg Tablet) 100 mg PO Q8H PRN PRN Reason: agitation/psychosis Last Admin: 11/23/23 21:48 Dose: 100 mg Documented By: JOHN Diphenhydramine HCl (Diphenhydramine Hcl 25 Mg Capsule) 25 mg PO BEDTIME [facility] Last Admin: 11/23/23 20:44 Dose: 25 mg Documented By: JOHN Diphenhydramine HCl (Diphenhydramine Hcl 25 Mg Capsule) 25 mg PO Q8H PRN PRN Reason: Anxiety Last Admin: 11/24/23 04:39 Dose: 25 mg Documented By: JOHN Divalproex Sodium (Divalproex Sodium Er 500 Mg Tab.Er.24h) 1,000 mg PO BID [facility] Last Admin: 11/23/23 20:43 Dose: 1,000 mg Documented By: JOHN Docusate Sodium (Docusate Sodium 100 Mg Capsule) 100 mg PO BID PRN PRN Reason: Constipation Enoxaparin Sodium (Enoxaparin Sodium 40 Mg/0.4 Ml Syringe) 40 mg SUBCUT Q24H [facility] Last Admin: 11/23/23 20:42 Dose: 40 mg Documented By: OJHN Hydrocortisone (Hydrocortisone 1 % Cream 28.35 Gm Tube) 1 appl TOPICAL BID [facility]; Protocol Last Admin: 11/23/23 20:43 Dose: 1 appl Documented By: JOHN Ibuprofen (Ibuprofen 800 Mg Tablet) 800 mg PO Q6H PRN PRN Reason: Body-ache/toothache Last Admin: 11/24/23 04:41 Dose: 800 mg Documented By: JOHN Levothyroxine Sodium (Levothyroxine Sodium 75 Mcg Tablet) 75 mcg PO DAILY@0600 [facility] Last Admin: 11/24/23 05:34 Dose: 75 mcg Documented By: JOHN Lidocaine (Lidocaine 4 % Patch Adh..Patch) 2 patch TRANSDERMA DAILY [facility]; Protocol Lisinopril (Lisinopril 40 Mg Tablet) 40 mg PO DAILY [facility]; Protocol Lorazepam (Lorazepam 1 Mg Tablet) 1 mg PO BEDTIME [facility] Last Admin: 11/23/23 20:43 Dose: 1 mg Documented By: JOHN Lorazepam (Lorazepam 1 Mg Tablet) 1 mg PO BID PRN PRN Reason: Anxiety Last Admin: 11/24/23 04:38 Dose: 1 mg Documented By: JOHN Magnesium Hydroxide (Milk Of Magnesia 30 Ml Oral.Susp) 30 ml PO DAILY PRN PRN Reason: Constipation Melatonin (Melatonin 3 Mg Tablet) 6 mg PO BEDTIME PRN PRN Reason: Sleep Metoprolol Succinate (Metoprolol Succinate Er 25 Mg Tab.Er.24h) 25 mg PO DAILY [facility]; Protocol Nicotine (Nicotine 21 Mg Patch.Td24) 21 mg TRANSDERMA DAILY [facility] Nicotine Polacrilex (Nicotine Polacrilex 2 Mg Gum) 2 mg BUCCAL Q2H PRN PRN Reason: Nicotine Cravings Omeprazole (Omeprazole 20 Mg Capsule.Dr) 20 mg PO DAILY@0630 [facility] Last Admin: 11/24/23 05:34 Dose: 20 mg Documented By: JOHN Sodium Chloride (0.9 % Sodium Chloride Flush 3 Ml Syringe) 3 ml IVFLUSH QSHIFT [facility] Last Admin: 11/24/23 00:54 Dose: Not Given Documented By: JOHN Non-Admin Reason: No Access Labs 11/24/23 06:13 11/24/23 11:46 Labs: Laboratory Results - last 24 hr 11/23/23 11/23/23 11/23/23 13:46 14:15 14:19 MCV 87.3 MCH 29.0 MCHC 33.2 RDW 13.5 Plt Count 210 MPV 10.3 Immature Gran % (Auto) 0.8 H Neut % (Auto) 69.1 Lymph % (Auto) 16.7 L Boundary % (Auto) 11.2 H Eos % (Auto) 1.7 Baso % (Auto) 0.5 Lymph # (Auto) 1.1 L Boundary # (Auto) 0.7 Eos # (Auto) 0.1 Baso # (Auto) 0.0 Abs Immat Gran (auto) 0.05 H Absolute Neuts (auto) 4.6 Absolute Nucleated RBC 0.000 Nucleated RBC % (auto) 0.0 Hold Purple Top VBG pH 7.44 H VBG pCO2 34 VBG pO2 48 VBG HCO3 23 VBG O2 Saturation 79.0 VBG Base Excess 0.3 Anion Gap 14 Estim Creat Clear Calc 110.3 Estimated GFR > 60 POC Glucose 84 Random Glucose 83 Osmolality Lactic Acid Calcium 9.1 Total Bilirubin 0.4 AST 21 ALT 20 Alkaline Phosphatase 35 L Ammonia 29 Troponin I High Sens < 2.7 Total Protein 6.5 Albumin 3.7 TSH 6.58 H Free T4 0.93 Random Cortisol Hold Yellow Top Urine Color Urine Appearance Urine pH Ur Specific Falkner Urine Protein Urine Glucose (UA) Urine Ketones Urine Blood Urine Nitrite Ur Leukocyte Esterase Urine RBC Urine WBC Ur Squamous Epith Cells Urine Bacteria Hyaline Casts Urine Osmolality Ur Random Sodium Urine Creatinine Urine Opiates Screen Ur Buprenorphine Scrn Ur Oxycodone Screen Urine Methadone Screen Urine Fentanyl Screen Ur Barbiturates Screen Valproic Acid Ur Phencyclidine Scrn Ur Amphetamines Screen U Benzodiazepines Scrn Urine Cocaine Screen U Marijuana (THC) Screen 11/23/23 11/23/23 11/23/23 14:37 15:34 17:24 MCV MCH MCHC RDW Plt Count MPV Immature Gran % (Auto) Neut % (Auto) Lymph % (Auto) Boundary % (Auto) Eos % (Auto) Baso % (Auto) Lymph # (Auto) Boundary # (Auto) Eos # (Auto) Baso # (Auto) Abs Immat Gran (auto) Absolute Neuts (auto) Absolute Nucleated RBC Nucleated RBC % (auto) Hold Purple Top VBG pH VBG pCO2 VBG pO2 VBG HCO3 VBG O2 Saturation VBG Base Excess Anion Gap Estim Creat Clear Calc Estimated GFR POC Glucose Random Glucose Osmolality 272 L Lactic Acid 0.8 Calcium Total Bilirubin AST ALT Alkaline Phosphatase Ammonia Troponin I High Sens Total Protein Albumin TSH Free T4 Random Cortisol Hold Yellow Top Urine Color Yellow Urine Appearance Clear Urine pH 6.0 Ur Specific Falkner 1.010 Urine Protein Negative Urine Glucose (UA) Negative Urine Ketones Negative Urine Blood Negative Urine Nitrite Negative Ur Leukocyte Esterase Negative Urine RBC 0-2 Urine WBC 0-5 Ur Squamous Epith Cells 0-2 Urine Bacteria None Seen Hyaline Casts 0-2 Urine Osmolality 212 L Ur Random Sodium < 20.0 Urine Creatinine 54.49 Urine Opiates Screen Not Detected Ur Buprenorphine Scrn Not Detected Ur Oxycodone Screen Not Detected Urine Methadone Screen Not Detected Urine Fentanyl Screen Not Detected Ur Barbiturates Screen Not Detected Valproic Acid 57.7 Ur Phencyclidine Scrn Not Detected Ur Amphetamines Screen Not Detected U Benzodiazepines Scrn Not Detected Urine Cocaine Screen Not Detected U Marijuana (THC) Screen Not Detected 07/11/23/23 11/24/23 19:09 20:19 02:33 MCV MCH MCHC RDW Plt Count MPV Immature Gran % (Auto) Neut % (Auto) Lymph % (Auto) Boundary % (Auto) Eos % (Auto) Baso % (Auto) Lymph # (Auto) Boundary # (Auto) Eos # (Auto) Baso # (Auto) Abs Immat Gran (auto) Absolute Neuts (auto) Absolute Nucleated RBC Nucleated RBC % (auto) Hold Purple Top SEE NOTE VBG pH VBG pCO2 VBG pO2 VBG HCO3 VBG O2 Saturation VBG Base Excess Anion Gap 16 14 15 Estim Creat Clear Calc 127.1 Estimated GFR > 60 POC Glucose Random Glucose 75 Osmolality Lactic Acid Calcium 9.1 Total Bilirubin AST ALT Alkaline Phosphatase Ammonia Troponin I High Sens Total Protein Albumin TSH Free T4 Random Cortisol Hold Yellow Top See Note Urine Color Urine Appearance Urine pH Ur Specific Falkner Urine Protein Urine Glucose (UA) Urine Ketones Urine Blood Urine Nitrite Ur Leukocyte Esterase Urine RBC Urine WBC Ur Squamous Epith Cells Urine Bacteria Hyaline Casts Urine Osmolality Ur Random Sodium Urine Creatinine Urine Opiates Screen Ur Buprenorphine Scrn Ur Oxycodone Screen Urine Methadone Screen Urine Fentanyl Screen Ur Barbiturates Screen Valproic Acid Ur Phencyclidine Scrn Ur Amphetamines Screen U Benzodiazepines Scrn Urine Cocaine Screen U Marijuana (THC) Screen 11/24/23 06:13 MCV 85.9 MCH 28.9 MCHC 33.7 RDW 13.5 Plt Count 256 MPV 9.4 Immature Gran % (Auto) 0.6 H Neut % (Auto) 81.8 H Lymph % (Auto) 9.4 L Boundary % (Auto) 7.3 Eos % (Auto) 0.7 Baso % (Auto) 0.2 Lymph # (Auto) 0.8 L Boundary # (Auto) 0.6 Eos # (Auto) 0.1 Baso # (Auto) 0.0 Abs Immat Gran (auto) 0.05 H Absolute Neuts (auto) 6.9 Absolute Nucleated RBC 0.000 Nucleated RBC % (auto) 0.0 Hold Purple Top VBG pH VBG pCO2 VBG pO2 VBG HCO3 VBG O2 Saturation VBG Base Excess Anion Gap 16 Estim Creat Clear Calc 136.9 Estimated GFR > 60 POC Glucose Random Glucose 110 Osmolality Lactic Acid Calcium 9.3 Total Bilirubin AST ALT Alkaline Phosphatase Ammonia Troponin I High Sens Total Protein Albumin TSH Free T4 Random Cortisol 11.7 Hold Yellow Top Urine Color Urine Appearance Urine pH Ur Specific Falkner Urine Protein Urine Glucose (UA) Urine Ketones Urine Blood Urine Nitrite Ur Leukocyte Esterase Urine RBC Urine WBC Ur Squamous Epith Cells Urine Bacteria Hyaline Casts Urine Osmolality Ur Random Sodium Urine Creatinine Urine Opiates Screen Ur Buprenorphine Scrn Ur Oxycodone Screen Urine Methadone Screen Urine Fentanyl Screen Ur Barbiturates Screen Valproic Acid Ur Phencyclidine Scrn Ur Amphetamines Screen U Benzodiazepines Scrn Urine Cocaine Screen U Marijuana (THC) Screen Assessment and Plan (1) Altered mental status: Status: Acute (2) Acute hyponatremia: Status: Acute (3) Acute hyperkalemia: Status: Acute Plan 43 year old male with history of GERD, bipolar disorder, htn, hypothyroidism presented to the ED from [facility] where he has been residing for management of vasquez admitted for further management of acute hyponatremia with acute encephalopathy #Acute encephalopathy- resolving, but remains delusional, manic -?due to hypersomnolance coming down from vasquez vs hypotensive encephalopathy (less likely given has been normotensive in ED) vs r/t hyponatremia (also less likely given sodium level only 123) -Head CT negative for acute intracranial abn -No uremia, hypercapnia. Ammonia WNL. TSH slighlty elevated at 6, free T4 pending -Monitor mentation #Acute hyponatremia -Ur osm 212, serum osm 272, Na 123. 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 Sleep study ordered #Possible aspiration pneumonitis -CTA chest with bilateral lower lobe tree in bud opacities -no leukocytosis, fevers. No hypoxia while awake. Asymptomatic -monitor for now #hypothyroidism -TSH 6, free t4 pending -continue current dose levothyroxone pending free t4 #bipolar disorder -continue mood stabilizers. decrease dose of lorazepam and benadryl due to hypersomnolance #GERD -ppi dvt prophylaxis- lovenox full code Ongoing inpt stay: hyponatremia requiring slow replacement with serial monitoring for overcorrection and expert consulation Quality Stroke Does the patient have a stroke diagnosis?: No VTE Prior VTE?: No VTE Risk Level:: Medical - moderate - high VTE Device Contraindication: Treatment Not Indicated VTE Drug Contraindication: N/A - Med Ordered
--- NOTE | 2023-11-24 07:17 | PC.NURSE ---
Resumed care of pt at 0700. Pt resting in recliner, respirations even and unlabored, no increased WOB/SOB, pt O2 92% on RA, call cortez within reach.
[2023-11-24] MEDS: Metoprolol Succinate ER 25 MG TAB.ER.24H PO (07:46)
[2023-11-24] MEDS: Amoxicillin/Potassium Clav 875 MG TABLET PO ×2 (07:47→21:39)
[2023-11-24] MEDS: lisinopriL 40 MG TABLET PO (07:47)
[2023-11-24] MEDS: Divalproex Sodium ER 500 MG TAB.ER.24H 1000 MG PO ×2 (07:48→21:39)
[2023-11-24] MEDS: Benztropine Mesylate 1 MG TABLET 2 MG PO ×2 (07:49→21:39)
[2023-11-24] MEDS: Nicotine 21 MG PATCH.TD24 TRANSDERMA (07:51)
[2023-11-24] MEDS: Lidocaine 4 % Patch ADH..PATCH 2 PATCH TRANSDERMA (07:52)
--- NOTE | 2023-11-24 08:11 | PC.NURSE ---
this RN verified with Sophie BARRAZA on location of patient, as she had ordered medsurg orders and med tele orders, however patient was slotted for a medsurg bed. Per Sophie she is okay with him go to medsurg now that his K is lower she would like him on Medsurg.
[2023-11-24] MEDS: 0.9 % Sodium Chloride Flush 3 ML SYRINGE IVFLUSH ×3 (09:51→23:08)
[2023-11-24] MEDS: Hydrocortisone 1 % Cream 28.35 GM TUBE 1 APPL TOPICAL (09:51)
--- NOTE | 2023-11-24 10:11 | PC.NURSE ---
Pt unable to provide accurate information to due AMS and psychiatric hx
[2023-11-24 12:03] LABS: Anion Gap 14 (12-20); Carbon Dioxide 26 mmol/L (22-29); Chloride 92 mmol/L (96-108); Potassium 5.4 mmol/L (3.3-5.1); Sodium 127 mmol/L (135-145)
[2023-11-24] MEDS: 0.9 % Sodium Chloride 1,000 ML 80 ML IVCONT (14:55)
[2023-11-24] MEDS: Throat Lozenge, Medicated LOZENGE 1 LOZENGE MUCOUS MEM (17:07)
[2023-11-24 18:44] LABS: Anion Gap 14 (12-20); Carbon Dioxide 30 mmol/L (22-29); Chloride 95 mmol/L (96-108); Potassium 5.5 mmol/L (3.3-5.1); Sodium 133 mmol/L (135-145)
[2023-11-24] MEDS: Enoxaparin Sodium 40 MG/0.4 ML SYRINGE SUBCUT (19:11)
[2023-11-24] MEDS: Sodium Zirconium Cyclosilicate 10 GM POWD.PACK PO (20:03)
[2023-11-24] MEDS: Atorvastatin Calcium 80 MG TABLET PO (21:39)
[2023-11-24] MEDS: Melatonin 3 MG TABLET 6 MG PO (21:39)
[2023-11-24] MEDS: chlorproMAZINE HCl 100 MG TABLET PO (21:39)
[2023-11-24] MEDS: Nicotine Polacrilex 2 MG GUM BUCCAL (23:08)
--- NOTE | 2023-11-24 23:28 | PC.NURSE ---
Addendum entered by Zaida Beal RN 11/25/23 06:02: 05:45: Patient heard shouting from room. College Sports Assistant immediately responded to the room. Patient observed shouting at the male sitter present in the room, observed throwing an empty styrofoam cup and a package of gianni crackers at the sitter, yelling at him to get out ! Attempts made to de-escalate the patient though he appears to be delusional, repeating random numbers over and over when attempting to speak to him and calm him. 1:1 states patient had asked him for a pen to write down the lotto numbers , and when he responded that he did not have a pen to give him the patient became verbally aggressive and began throwing stuff. Security requested to bedside for assistance with de-escalation with +effect. Patient was then agreeable to taking prn thorazine per MAR. The patient stated to this signwriter that he did not want a male (sitter) in his room, however, as discussed with the charge nurse, the patient has been inappropriate with female sitters. Discussed need for male sitter with the patient with security present; male sitter present at the door for continued observation. VMT camera in place as well for staff safety. Discussed with nursing motion picture equipment supervisor. Original Note: Assumed care of patient at 23:00. Pt is A&Ox2 to self and year; disoriented to time and situation. Pt thinks he is still at [facility] [place] and is frequently requesting his belongings, specifically his cell phone. He is vague and goes on tangents of unrelated topics/stories when asked assessment questions. Pt is forgetful, frequently requesting water; educated on fluid restriction due to hyponatremia/electrolyte imbalances, and unable to give more water until reset at midnight. On q6h scheduled lytes, next due at midnight, discussed with patient who is agreeable at this time. Concern for DOLORES per chart review and ordered cpap discussed; patient continues to refuse cpap. Breathing is even and unlabored without distress on RA. No distress noted, patient sitting in recliner watching tv. Continues with VMT tele-sitter as well as 1:1 patient observer. Please see shift assessment, tasks, and MAR for full details.
--- NOTE | 2023-11-24 23:55 | PC.RT ---
Start pt Sleep Study at 0000; on RA with sitter in room
[2023-11-25 01:24] LABS: Anion Gap 14 (12-20); Carbon Dioxide 27 mmol/L (22-29); Chloride 98 mmol/L (96-108); Potassium 4.9 mmol/L (3.3-5.1); Sodium 134 mmol/L (135-145)
[2023-11-25] MEDS: 0.9 % Sodium Chloride 1,000 ML 80 ML IVCONT ×2 (03:40→12:55)
[2023-11-25 04:00] VITALS: BP 129/58; PULSE 83; RESP 18; TEMP 36.3; O2SAT 95
[2023-11-25] MEDS: Levothyroxine Sodium 75 MCG TABLET PO (05:32)
[2023-11-25] MEDS: Omeprazole 20 MG CAPSULE.DR PO (05:32)
[2023-11-25] MEDS: chlorproMAZINE HCl 100 MG TABLET PO ×2 (06:01→20:51)
[2023-11-25 07:19] LABS: Anion Gap 16 (12-20); Carbon Dioxide 27 mmol/L (22-29); Chloride 98 mmol/L (96-108); Potassium 4.7 mmol/L (3.3-5.1); Sodium 136 mmol/L (135-145)
[2023-11-25 08:08] VITALS: BP 126/64; PULSE 94; RESP 12; TEMP 36.6; O2SAT 97
[2023-11-25] MEDS: Amoxicillin/Potassium Clav 875 MG TABLET PO ×2 (08:21→20:00)
[2023-11-25] MEDS: Metoprolol Succinate ER 25 MG TAB.ER.24H PO (08:21)
[2023-11-25] MEDS: Divalproex Sodium ER 500 MG TAB.ER.24H 1000 MG PO ×2 (08:22→20:00)
[2023-11-25] MEDS: Benztropine Mesylate 1 MG TABLET 2 MG PO ×2 (08:22→20:00)
[2023-11-25] MEDS: LORazepam 1 MG TABLET PO ×3 (08:22→20:01)
[2023-11-25] MEDS: Nicotine 21 MG PATCH.TD24 TRANSDERMA (08:22)
[2023-11-25] MEDS: Throat Lozenge, Medicated LOZENGE 1 LOZENGE MUCOUS MEM ×2 (08:27→18:20)
[2023-11-25] MEDS: Ibuprofen 800 MG TABLET PO ×2 (08:27→18:20)
[2023-11-25] MEDS: Hydrocortisone 1 % Cream 28.35 GM TUBE 1 APPL TOPICAL (08:29)
[2023-11-25] MEDS: 0.9 % Sodium Chloride Flush 3 ML SYRINGE IVFLUSH ×2 (08:29→20:51)
[2023-11-25] MEDS: Lidocaine 4 % Patch ADH..PATCH 2 PATCH TRANSDERMA (08:29)
[2023-11-25] MEDS: Nicotine Polacrilex 2 MG GUM BUCCAL (08:30)
--- NOTE | 2023-11-25 11:48 | MHC.CM.PN ---
[facility] DELIVERED PTIS FROM [facility] BUT IS NOW DC. IF PT STILL REQUIRES PSYCH STAY, PSYCH WILL NEED TO EVAL AND DO ANOTHER BED SEARCH. PT WISHES TO RETURN HOME TO [place]. 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 PT IS ACTIVE WITH [facility] FOR SN/MED MANAGEMENT. CM SPOKE WITH [facility]NA REP WHO CONFIRMS HIS ADDRESS ( [address] [place] [address].) NOK/EMERGENCY CONTACT LISTED [facility] ([phone]) PCP JAKE AGUILAR IN [place]. NOTIFIED OF NEED FOR PSYCH CONSULT. DP: TO BE DETERMINED. PT WISHES TO RETURN HOME WITH RESUMPTION OF [facility] SERVICES. WILL NEED BLS TRANSPORT. RETURN REFERRAL SENT TO [facility].
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
[2023-11-25 12:46] LABS: Anion Gap 14 (12-20); Carbon Dioxide 25 mmol/L (22-29); Chloride 99 mmol/L (96-108); Potassium 4.8 mmol/L (3.3-5.1); Sodium 133 mmol/L (135-145)
--- NOTE | 2023-11-25 13:35 | P.CNPS_ITS ---
History of Present Illness Date of Service: 11/25/23 Chief Complaint: hyponatremia, ams Reason for Consult: vasquez Discussed with referring provider: Yes Sources of Information: patient interviewed, chart reviewed and crisis/core team assessment reviewed HPI Narrative: Mr. Allen is a 43 year-old male with hx of Bipolar disorder who was transferred from [facility] where he was receiving treatment for vasquez. He was sent due to increase sedation and changed in mental status. In the ED, pt presented with hyperkalemia, hyponatremia, chest CT showing bilat opacities of lung- pt stated on broad spectrum antibiotic. Pt seen today. He presents with expansive affect. 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 He states he will donate to this hospital a million dollars. He reports he knows everything- including medicine. He denies SI, stating never. He also denies HI. He reports he was seeing colors, like a rainbow. He has been on depakote for some years- according to pt. He reports he had allergic reaction to lithium- cause acne. It appears that he used to be on haldol dec- but reports he declined it due to TD- which he does not show signs of it at the moment. Past Psychiatric History: INpt: [facility] 11/2023, reports multiple in the past OP: Dr. Cartwright, therapist is Dr. Vilma Hopkins. Pt reports he is connected with [facility] services Past med trials- risperidone, haldol, thorazine, depakote, lithium [facility] Medical History (Updated 11/28/23 @ 18:31 by Romario Christine MD) Severe bipolar I disorder, recurrent manic episode, with psychotic behavior History of substance abuse HTN (hypertension) Bipolar disorder GERD (gastroesophageal reflux disease) Substance History: hx of alcohol, MDMA Diagnostics Vital Signs (24Hr): Vital Signs - 24 hr 11/24/23 16:00 11/24/23 19:16 11/25/23 04:00 Temperature 97.3 F 97.2 F 97.4 F Pulse Rate 100 90 83 Respiratory Rate 18 18 18 Blood Pressure 154/58 H 128/60 129/58 L Pulse Oximetry 98 97 95 Oxygen Delivery Method Room Air Room Air Room Air 11/25/23 08:08 Temperature 97.8 F Pulse Rate 94 Respiratory Rate 12 Blood Pressure 126/64 Pulse Oximetry 97 Oxygen Delivery Method Room Air BMI result Body Mass Index 50.6 Labs 11/24/23 06:13 11/26/23 05:58 Labs: Laboratory Results - last 48 hr 11/23/23 11/23/23 11/23/23 13:46 14:15 14:19 WBC 6.6 RBC 4.24 L Hgb 12.3 L Hct 37.0 L MCV 87.3 MCH 29.0 MCHC 33.2 RDW 13.5 Plt Count 210 MPV 10.3 Immature Gran % (Auto) 0.8 H Neut % (Auto) 69.1 Lymph % (Auto) 16.7 L Johnston % (Auto) 11.2 H Eos % (Auto) 1.7 Baso % (Auto) 0.5 Lymph # (Auto) 1.1 L Johnston # (Auto) 0.7 Eos # (Auto) 0.1 Baso # (Auto) 0.0 Abs Immat Gran (auto) 0.05 H Absolute Neuts (auto) 4.6 Absolute Nucleated RBC 0.000 Nucleated RBC % (auto) 0.0 Hold Purple Top VBG pH 7.44 H VBG pCO2 34 VBG pO2 48 VBG HCO3 23 VBG O2 Saturation 79.0 VBG Base Excess 0.3 Sodium 123 L Potassium 5.1 Chloride 90 L Carbon Dioxide 24 Anion Gap 14 BUN 22 H Creatinine 1.29 Estim Creat Clear Calc 110.3 Estimated GFR > 60 POC Glucose 84 Random Glucose 83 Osmolality Lactic Acid Calcium 9.1 Total Bilirubin 0.4 AST 21 ALT 20 Alkaline Phosphatase 35 L Ammonia 29 Troponin I High Sens < 2.7 Total Protein 6.5 Albumin 3.7 TSH 6.58 H Free T4 0.93 Random Cortisol Hold Yellow Top Urine Color Urine Appearance Urine pH Ur Specific [place] Urine Protein Urine Glucose (UA) Urine Ketones Urine Blood Urine Nitrite Ur Leukocyte Esterase Urine RBC Urine WBC Ur Squamous Epith Cells Urine Bacteria Hyaline Casts Urine Osmolality Ur Random Sodium Urine Creatinine Urine Opiates Screen Ur Buprenorphine Scrn Ur Oxycodone Screen Urine Methadone Screen Urine Fentanyl Screen Ur Barbiturates Screen Valproic Acid Ur Phencyclidine Scrn Ur Amphetamines Screen U Benzodiazepines Scrn Urine Cocaine Screen U Marijuana (THC) Screen 11/23/23 11/23/23 11/23/23 14:37 15:34 17:24 WBC RBC Hgb Hct MCV MCH MCHC RDW Plt Count MPV Immature Gran % (Auto) Neut % (Auto) Lymph % (Auto) Johnston % (Auto) Eos % (Auto) Baso % (Auto) Lymph # (Auto) Johnston # (Auto) Eos # (Auto) Baso # (Auto) Abs Immat Gran (auto) Absolute Neuts (auto) Absolute Nucleated RBC Nucleated RBC % (auto) Hold Purple Top VBG pH VBG pCO2 VBG pO2 VBG HCO3 VBG O2 Saturation VBG Base Excess Sodium Potassium Chloride Carbon Dioxide Anion Gap BUN Creatinine Estim Creat Clear Calc Estimated GFR POC Glucose Random Glucose Osmolality 272 L Lactic Acid 0.8 Calcium Total Bilirubin AST ALT Alkaline Phosphatase Ammonia Troponin I High Sens Total Protein Albumin TSH Free T4 Random Cortisol Hold Yellow Top Urine Color Yellow Urine Appearance Clear Urine pH 6.0 Ur Specific [place] 1.010 Urine Protein Negative Urine Glucose (UA) Negative Urine Ketones Negative Urine Blood Negative Urine Nitrite Negative Ur Leukocyte Esterase Negative Urine RBC 0-2 Urine WBC 0-5 Ur Squamous Epith Cells 0-2 Urine Bacteria None Seen Hyaline Casts 0-2 Urine Osmolality 212 L Ur Random Sodium < 20.0 Urine Creatinine 54.49 Urine Opiates Screen Not Detected Ur Buprenorphine Scrn Not Detected Ur Oxycodone Screen Not Detected Urine Methadone Screen Not Detected Urine Fentanyl Screen Not Detected Ur Barbiturates Screen Not Detected Valproic Acid 57.7 Ur Phencyclidine Scrn Not Detected Ur Amphetamines Screen Not Detected U Benzodiazepines Scrn Not Detected Urine Cocaine Screen Not Detected U Marijuana (THC) Screen Not Detected 11/23/23 11/23/23 11/24/23 19:09 20:19 02:33 WBC RBC Hgb Hct MCV MCH MCHC RDW Plt Count MPV Immature Gran % (Auto) Neut % (Auto) Lymph % (Auto) Johnston % (Auto) Eos % (Auto) Baso % (Auto) Lymph # (Auto) Johnston # (Auto) Eos # (Auto) Baso # (Auto) Abs Immat Gran (auto) Absolute Neuts (auto) Absolute Nucleated RBC Nucleated RBC % (auto) Hold Purple Top SEE NOTE VBG pH VBG pCO2 VBG pO2 VBG HCO3 VBG O2 Saturation VBG Base Excess Sodium 122 L 125 L 126 L Potassium 6.3 H* D 5.9 H 5.7 H Chloride 93 L 91 L 93 L Carbon Dioxide 19 L 26 24 Anion Gap 16 14 15 BUN 20 H Creatinine 1.12 Estim Creat Clear Calc 127.1 Estimated GFR > 60 POC Glucose Random Glucose 75 Osmolality Lactic Acid Calcium 9.1 Total Bilirubin AST ALT Alkaline Phosphatase Ammonia Troponin I High Sens Total Protein Albumin TSH Free T4 Random Cortisol Hold Yellow Top See Note Urine Color Urine Appearance Urine pH Ur Specific [place] Urine Protein Urine Glucose (UA) Urine Ketones Urine Blood Urine Nitrite Ur Leukocyte Esterase Urine RBC Urine WBC Ur Squamous Epith Cells Urine Bacteria Hyaline Casts Urine Osmolality Ur Random Sodium Urine Creatinine Urine Opiates Screen Ur Buprenorphine Scrn Ur Oxycodone Screen Urine Methadone Screen Urine Fentanyl Screen Ur Barbiturates Screen Valproic Acid Ur Phencyclidine Scrn Ur Amphetamines Screen U Benzodiazepines Scrn Urine Cocaine Screen U Marijuana (THC) Screen 11/24/23 11/24/23 11/24/23 06:13 11:46 18:04 WBC 8.4 RBC 4.25 L Hgb 12.3 L Hct 36.5 L MCV 85.9 MCH 28.9 MCHC 33.7 RDW 13.5 Plt Count 256 MPV 9.4 Immature Gran % (Auto) 0.6 H Neut % (Auto) 81.8 H Lymph % (Auto) 9.4 L Johnston % (Auto) 7.3 Eos % (Auto) 0.7 Baso % (Auto) 0.2 Lymph # (Auto) 0.8 L Johnston # (Auto) 0.6 Eos # (Auto) 0.1 Baso # (Auto) 0.0 Abs Immat Gran (auto) 0.05 H Absolute Neuts (auto) 6.9 Absolute Nucleated RBC 0.000 Nucleated RBC % (auto) 0.0 Hold Purple Top VBG pH VBG pCO2 VBG pO2 VBG HCO3 VBG O2 Saturation VBG Base Excess Sodium 127 L 127 L 133 L Potassium 5.2 H 5.4 H 5.5 H Chloride 90 L 92 L 95 L Carbon Dioxide 26 26 30 H Anion Gap 16 14 14 BUN 18 H Creatinine 1.04 Estim Creat Clear Calc 136.9 Estimated GFR > 60 POC Glucose Random Glucose 110 Osmolality Lactic Acid Calcium 9.3 Total Bilirubin AST ALT Alkaline Phosphatase Ammonia Troponin I High Sens Total Protein Albumin TSH Free T4 Random Cortisol 11.7 Hold Yellow Top Urine Color Urine Appearance Urine pH Ur Specific [place] Urine Protein Urine Glucose (UA) Urine Ketones Urine Blood Urine Nitrite Ur Leukocyte Esterase Urine RBC Urine WBC Ur Squamous Epith Cells Urine Bacteria Hyaline Casts Urine Osmolality Ur Random Sodium Urine Creatinine Urine Opiates Screen Ur Buprenorphine Scrn Ur Oxycodone Screen Urine Methadone Screen Urine Fentanyl Screen Ur Barbiturates Screen Valproic Acid Ur Phencyclidine Scrn Ur Amphetamines Screen U Benzodiazepines Scrn Urine Cocaine Screen U Marijuana (THC) Screen 11/25/23 11/25/23 11/25/23 01:03 06:49 12:00 WBC RBC Hgb Hct MCV MCH MCHC RDW Plt Count MPV Immature Gran % (Auto) Neut % (Auto) Lymph % (Auto) Johnston % (Auto) Eos % (Auto) Baso % (Auto) Lymph # (Auto) Johnston # (Auto) Eos # (Auto) Baso # (Auto) Abs Immat Gran (auto) Absolute Neuts (auto) Absolute Nucleated RBC Nucleated RBC % (auto) Hold Purple Top SEE NOTE SEE NOTE VBG pH VBG pCO2 VBG pO2 VBG HCO3 VBG O2 Saturation VBG Base Excess Sodium 134 L 136 Potassium 4.9 4.7 Chloride 98 98 Carbon Dioxide 27 27 Anion Gap 14 16 BUN Creatinine Estim Creat Clear Calc Estimated GFR POC Glucose Random Glucose Osmolality Lactic Acid Calcium Total Bilirubin AST ALT Alkaline Phosphatase Ammonia Troponin I High Sens Total Protein Albumin TSH Free T4 Random Cortisol Hold Yellow Top Urine Color Urine Appearance Urine pH Ur Specific [place] Urine Protein Urine Glucose (UA) Urine Ketones Urine Blood Urine Nitrite Ur Leukocyte Esterase Urine RBC Urine WBC Ur Squamous Epith Cells Urine Bacteria Hyaline Casts Urine Osmolality Ur Random Sodium Urine Creatinine Urine Opiates Screen Ur Buprenorphine Scrn Ur Oxycodone Screen Urine Methadone Screen Urine Fentanyl Screen Ur Barbiturates Screen Valproic Acid Ur Phencyclidine Scrn Ur Amphetamines Screen U Benzodiazepines Scrn Urine Cocaine Screen U Marijuana (THC) Screen 11/25/23 12:24 WBC RBC Hgb Hct MCV MCH MCHC RDW Plt Count MPV Immature Gran % (Auto) Neut % (Auto) Lymph % (Auto) Johnston % (Auto) Eos % (Auto) Baso % (Auto) Lymph # (Auto) Johnston # (Auto) Eos # (Auto) Baso # (Auto) Abs Immat Gran (auto) Absolute Neuts (auto) Absolute Nucleated RBC Nucleated RBC % (auto) Hold Purple Top VBG pH VBG pCO2 VBG pO2 VBG HCO3 VBG O2 Saturation VBG Base Excess Sodium 133 L Potassium 4.8 Chloride 99 Carbon Dioxide 25 Anion Gap 14 BUN Creatinine Estim Creat Clear Calc Estimated GFR POC Glucose Random Glucose Osmolality Lactic Acid Calcium Total Bilirubin AST ALT Alkaline Phosphatase Ammonia Troponin I High Sens Total Protein Albumin TSH Free T4 Random Cortisol Hold Yellow Top Urine Color Urine Appearance Urine pH Ur Specific [place] Urine Protein Urine Glucose (UA) Urine Ketones Urine Blood Urine Nitrite Ur Leukocyte Esterase Urine RBC Urine WBC Ur Squamous Epith Cells Urine Bacteria Hyaline Casts Urine Osmolality Ur Random Sodium Urine Creatinine Urine Opiates Screen Ur Buprenorphine Scrn Ur Oxycodone Screen Urine Methadone Screen Urine Fentanyl Screen Ur Barbiturates Screen Valproic Acid Ur Phencyclidine Scrn Ur Amphetamines Screen U Benzodiazepines Scrn Urine Cocaine Screen U Marijuana (THC) Screen Imaging Radiology Impressions: ITS Impressions Chest X-Ray 11/23/23 13:05 IMPRESSION: 1. Widening of the superior mediastinum. Recommend further evaluation with CT scan of the chest. 2. Increased perihilar groundglass opacities. Head CT 11/23/23 15:01 IMPRESSION: Unremarkable non-contrast CT of the brain. Chest CTA 11/23/23 16:04 IMPRESSION: 1. No acute aortic abnormality. 2. Mild consolidation and tree-in-bud opacities of the bilateral lower lobes, left greater than right, likely infectious/inflammatory in etiology. 3. Multiple prominent mediastinal lymph nodes, likely reactive. Mental Status Exam Mental Status Exam Narrative: Appearance: MO, sitting in chair, in NAD Behavior: overly friendly Psychomotor: no agitation nor retardation noted. No dyskinesia noted Speech: clear, hyperverbal, not pressured, spontaneous TP: tangential, no loose associations TC: feeling great wanting to go home Mood: great Affect: expansive SI: denies HI: denies VH/AH: no overt signs Delusions: grandiose delusions Insight/judgment: limited x 2. memory/cog: alert, oriented x 3. Medications Medications Current Medications Acetaminophen (Acetaminophen 325 Mg Tablet) 650 mg PO Q6H PRN PRN Reason: Pain, Mild (Pain Scale 1-3), fever or headache Albuterol Sulfate (Albuterol Sulfate 90 Mcg 8 Gm Inhaler) 2 puff INHALE Q4H PRN PRN Reason: Shortness Of Breath Or Wheezing Amoxicillin/Clavulanate Potassium (Amoxicillin/Potassium Clav 875 Mg Tablet) 875 mg PO BID [facility] Last Admin: 11/25/23 08:21 Dose: 875 mg Atorvastatin Calcium (Atorvastatin Calcium 80 Mg Tablet) 80 mg PO BEDTIME [facility] Last Admin: 11/24/23 21:39 Dose: 80 mg Benzocaine (Throat Lozenge, Medicated Lozenge) 1 lozenge MUCOUS MEM Q2H PRN PRN Reason: Sore Throat Last Admin: 11/25/23 08:27 Dose: 1 lozenge Benztropine Mesylate (Benztropine Mesylate 1 Mg Tablet) 2 mg PO BID [facility] Last Admin: 11/25/23 08:22 Dose: 2 mg Calcium Carbonate (Calcium Carbonate 750 Mg Tab.Chew) 750 mg PO Q4H PRN PRN Reason: Heartburn Chlorpromazine HCl (Chlorpromazine Hcl 100 Mg Tablet) 100 mg PO Q8H PRN PRN Reason: agitation/psychosis Last Admin: 11/25/23 06:01 Dose: 100 mg Diphenhydramine HCl (Diphenhydramine Hcl 25 Mg Capsule) 25 mg PO BEDTIME [facility] Last Admin: 11/24/23 21:39 Dose: 25 mg Diphenhydramine HCl (Diphenhydramine Hcl 25 Mg Capsule) 25 mg PO Q8H PRN PRN Reason: Anxiety Last Admin: 11/24/23 16:57 Dose: 25 mg Divalproex Sodium (Divalproex Sodium Er 500 Mg Tab.Er.24h) 1,000 mg PO BID [facility] Last Admin: 11/25/23 08:22 Dose: 1,000 mg Docusate Sodium (Docusate Sodium 100 Mg Capsule) 100 mg PO BID PRN PRN Reason: Constipation Enoxaparin Sodium (Enoxaparin Sodium 40 Mg/0.4 Ml Syringe) 40 mg SUBCUT Q24H [facility] Last Admin: 11/24/23 19:11 Dose: 40 mg Hydrocortisone (Hydrocortisone 1 % Cream 28.35 Gm Tube) 1 appl TOPICAL BID [facility]; Protocol Last Admin: 11/25/23 08:29 Dose: 1 appl Sodium Chloride (Ns) 1,000 mls @ 80 mls/hr IVCONT .[id number] [facility] Last Admin: 11/25/23 12:55 Dose: 80 mls/hr Ibuprofen (Ibuprofen 800 Mg Tablet) 800 mg PO Q6H PRN PRN Reason: Body-ache/toothache Last Admin: 11/25/23 08:27 Dose: 800 mg Levothyroxine Sodium (Levothyroxine Sodium 75 Mcg Tablet) 75 mcg PO DAILY@0600 [facility] Last Admin: 11/25/23 05:32 Dose: 75 mcg Lidocaine (Lidocaine 4 % Patch Adh..Patch) 2 patch TRANSDERMA DAILY [facility]; Protocol Last Admin: 11/25/23 08:29 Dose: 2 patch Lorazepam (Lorazepam 1 Mg Tablet) 1 mg PO BEDTIME [facility] Last Admin: 11/24/23 21:39 Dose: 1 mg Lorazepam (Lorazepam 1 Mg Tablet) 1 mg PO BID PRN PRN Reason: Anxiety Last Admin: 11/25/23 08:22 Dose: 1 mg Magnesium Hydroxide (Milk Of Magnesia 30 Ml Oral.Susp) 30 ml PO DAILY PRN PRN Reason: Constipation Melatonin (Melatonin 3 Mg Tablet) 6 mg PO BEDTIME PRN PRN Reason: Sleep Last Admin: 11/24/23 21:39 Dose: 6 mg Metoprolol Succinate (Metoprolol Succinate Er 25 Mg Tab.Er.24h) 25 mg PO DAILY [facility]; Protocol Last Admin: 11/25/23 08:21 Dose: 25 mg Nicotine (Nicotine 21 Mg Patch.Td24) 21 mg TRANSDERMA DAILY [facility] Last Admin: 11/25/23 08:22 Dose: 21 mg Nicotine Polacrilex (Nicotine Polacrilex 2 Mg Gum) 2 mg BUCCAL Q2H PRN PRN Reason: Nicotine Cravings Last Admin: 11/25/23 08:30 Dose: 2 mg Omeprazole (Omeprazole 20 Mg Capsule.) 20 mg PO DAILY@0630 [facility] Last Admin: 11/25/23 05:32 Dose: 20 mg Sodium Chloride (0.9 % Sodium Chloride Flush 3 Ml Syringe) 3 ml IVFLUSH QSHIFT [facility] Last Admin: 11/25/23 08:29 Dose: 3 ml Allergies Allergies Allergy/AdvReac Type Severity Reaction Status Date / Time No Known Allergies Allergy Verified 11/23/23 13:48 Assessment & Plan Assessment & Plan (1) Bipolar 1 disorder, manic, moderate: Status: Acute Code(s): F31.12 - Bipolar disorder, current episode manic without psychotic features, moderate Plan Mr. Allen is a 43 year-old male with hx of Bipolar disorder, admitted due to change in mental status, found to have hyponatremia, hyperkalemia, bilat opaccities lungs started on broad spectrum antibiotic. Ammonia is wnl. He is on depakote, previous report of hyperammonemia with depakote. Ammonia today again is normal. He does not present as delirium. But he continues to present with s/s of vasquez including grandiose delusions, pressured speech, increased energy, decreased need for sleep, labile. PLAN 1. Once medically clear, pt should be transferred to psych in level of care for further stabilization containtment and safety. 2. pending collateral information from family, outpatient providers. Total time managing care of this patient today ____ minutes.
--- NOTE | 2023-11-25 13:37 | HO.PM.IMPN ---
Subjective Subjective Date of Service: 11/25/23 Interval History: hyponatremia Review of Systems denies new c/o mental status improving no fevers Physical Exam Vital Signs: Vital Signs: Last Vital Signs Temp 97.8 F 11/25/23 08:08 Pulse 94 11/25/23 08:08 Resp 12 11/25/23 08:08 BP 126/64 11/25/23 08:08 Pulse Ox 97 11/25/23 08:08 O2 Del Method Room Air 11/25/23 08:08 BMI result Body Mass Index 50.6 Appearance: Alert.? Oriented,mental status seems improving .? cvs: rrr, [id number] , no murmur res: clear to auscultation ,no rhonchii or wheezing abd: no rebound or guarding ,nt, bs present. ext pulses present , no cyanosis . neuro: nonfocal. Objective Data Active Medications Acetaminophen (Acetaminophen 325 Mg Tablet) 650 mg PO Q6H PRN PRN Reason: Pain, Mild (Pain Scale 1-3), fever or headache Albuterol Sulfate (Albuterol Sulfate 90 Mcg 8 Gm Inhaler) 2 puff INHALE Q4H PRN PRN Reason: Shortness Of Breath Or Wheezing Amoxicillin/Clavulanate Potassium (Amoxicillin/Potassium Clav 875 Mg Tablet) 875 mg PO BID [facility] Last Admin: 11/25/23 08:21 Dose: 875 mg Documented By: HAILY Atorvastatin Calcium (Atorvastatin Calcium 80 Mg Tablet) 80 mg PO BEDTIME [facility] Last Admin: 11/24/23 21:39 Dose: 80 mg Documented By: HINA Benzocaine (Throat Lozenge, Medicated Lozenge) 1 lozenge MUCOUS MEM Q2H PRN PRN Reason: Sore Throat Last Admin: 11/25/23 08:27 Dose: 1 lozenge Documented By: HAILY Benztropine Mesylate (Benztropine Mesylate 1 Mg Tablet) 2 mg PO BID [facility] Last Admin: 11/25/23 08:22 Dose: 2 mg Documented By: HAILY Calcium Carbonate (Calcium Carbonate 750 Mg Tab.Chew) 750 mg PO Q4H PRN PRN Reason: Heartburn Chlorpromazine HCl (Chlorpromazine Hcl 100 Mg Tablet) 100 mg PO Q8H PRN PRN Reason: agitation/psychosis Last Admin: 11/25/23 06:01 Dose: 100 mg Documented By: CASE Diphenhydramine HCl (Diphenhydramine Hcl 25 Mg Capsule) 25 mg PO BEDTIME [facility] Last Admin: 11/24/23 21:39 Dose: 25 mg Documented By: HINA Diphenhydramine HCl (Diphenhydramine Hcl 25 Mg Capsule) 25 mg PO Q8H PRN PRN Reason: Anxiety Last Admin: 11/24/23 16:57 Dose: 25 mg Documented By: AJITH Divalproex Sodium (Divalproex Sodium Er 500 Mg Tab.Er.24h) 1,000 mg PO BID [facility] Last Admin: 11/25/23 08:22 Dose: 1,000 mg Documented By: HAILY Docusate Sodium (Docusate Sodium 100 Mg Capsule) 100 mg PO BID PRN PRN Reason: Constipation Enoxaparin Sodium (Enoxaparin Sodium 40 Mg/0.4 Ml Syringe) 40 mg SUBCUT Q24H [facility] Last Admin: 11/24/23 19:11 Dose: 40 mg Documented By: HINA Hydrocortisone (Hydrocortisone 1 % Cream 28.35 Gm Tube) 1 appl TOPICAL BID [facility]; Protocol Last Admin: 11/25/23 08:29 Dose: 1 appl Documented By: HAILY Sodium Chloride (Ns) 1,000 mls @ 80 mls/hr IVCONT .[id number] [facility] Last Admin: 11/25/23 12:55 Dose: 80 mls/hr Documented By: HAILY Ibuprofen (Ibuprofen 800 Mg Tablet) 800 mg PO Q6H PRN PRN Reason: Body-ache/toothache Last Admin: 11/25/23 08:27 Dose: 800 mg Documented By: HAILY Levothyroxine Sodium (Levothyroxine Sodium 75 Mcg Tablet) 75 mcg PO DAILY@0600 [facility] Last Admin: 11/25/23 05:32 Dose: 75 mcg Documented By: CASE Lidocaine (Lidocaine 4 % Patch Adh..Patch) 2 patch TRANSDERMA DAILY [facility]; Protocol Last Admin: 11/25/23 08:29 Dose: 2 patch Documented By: HAILY Lorazepam (Lorazepam 1 Mg Tablet) 1 mg PO BEDTIME [facility] Last Admin: 11/24/23 21:39 Dose: 1 mg Documented By: HINA Lorazepam (Lorazepam 1 Mg Tablet) 1 mg PO BID PRN PRN Reason: Anxiety Last Admin: 11/25/23 08:22 Dose: 1 mg Documented By: HAILY Magnesium Hydroxide (Milk Of Magnesia 30 Ml Oral.Susp) 30 ml PO DAILY PRN PRN Reason: Constipation Melatonin (Melatonin 3 Mg Tablet) 6 mg PO BEDTIME PRN PRN Reason: Sleep Last Admin: 11/24/23 21:39 Dose: 6 mg Documented By: HINA Metoprolol Succinate (Metoprolol Succinate Er 25 Mg Tab.Er.24h) 25 mg PO DAILY [facility]; Protocol Last Admin: 11/25/23 08:21 Dose: 25 mg Documented By: HAILY Nicotine (Nicotine 21 Mg Patch.Td24) 21 mg TRANSDERMA DAILY [facility] Last Admin: 11/25/23 08:22 Dose: 21 mg Documented By: HAILY Nicotine Polacrilex (Nicotine Polacrilex 2 Mg Gum) 2 mg BUCCAL Q2H PRN PRN Reason: Nicotine Cravings Last Admin: 11/25/23 08:30 Dose: 2 mg Documented By: HAILY Omeprazole (Omeprazole 20 Mg Capsule.Dr) 20 mg PO DAILY@0630 [facility] Last Admin: 11/25/23 05:32 Dose: 20 mg Documented By: CASE Sodium Chloride (0.9 % Sodium Chloride Flush 3 Ml Syringe) 3 ml IVFLUSH QSHIFT [facility] Last Admin: 11/25/23 08:29 Dose: 3 ml Documented By: HAILY Labs 11/24/23 06:13 11/25/23 12:24 Labs: Laboratory Results - last 24 hr 11/24/23 11/25/23 11/25/23 18:04 01:03 06:49 Hold Purple Top SEE NOTE Anion Gap 14 14 16 11/25/23 11/25/23 12:00 12:24 Hold Purple Top SEE NOTE Anion Gap 14 Assessment and Plan (1) Altered mental status: Status: Acute (2) Acute hyponatremia: Status: Acute (3) Acute hyperkalemia: Status: Acute Plan 43 year old male with history of GERD, bipolar disorder, htn, hypothyroidism presented to the ED from [facility] where he has been residing for management of vasquez admitted for further management of acute hyponatremia with acute encephalopathy Acute metabolic encephalopathy- resolving, but remains delusional, manic hyponatremia improving Head CT negative for acute intracranial abn,No uremia, hypercapnia. Ammonia WNL. TSH slighlty elevated at 6, free T4 normal Monitor mentation Acute hyponatremia -Ur osm 212, serum osm 272, Na 123. 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 Sleep study ordered Possible aspiration pneumonitis -CTA chest with bilateral lower lobe tree in bud opacities -no leukocytosis, fevers. No hypoxia while awake. Asymptomatic -monitor for now Hypothyroidism -TSH 6, free t4 pending -continue current dose levothyroxone pending free t4 bipolar disorder -continue mood stabilizers. decrease dose of lorazepam and benadryl due to hypersomnolance GERD-ppi dvt prophylaxis- lovenox. full code Ongoing inpt stay: hyponatremia requiring slow replacement with serial monitoring for overcorrection and expert consulation Quality Stroke Does the patient have a stroke diagnosis?: No VTE Prior VTE?: No VTE Risk Level:: Medical - moderate - high VTE Device Contraindication: Treatment Not Indicated VTE Drug Contraindication: N/A - Med Ordered
[2023-11-25 15:25] VITALS: BP 114/62; PULSE 97; RESP 18; TEMP 36.9; O2SAT 95
[2023-11-25 19:07] VITALS: BP 132/71; PULSE 96; RESP 20; TEMP 36.8; O2SAT 94
--- NOTE | 2023-11-25 19:55 | PC.NURSE ---
Addendum entered by Zaida Beal RN 11/26/23 04:26: 22:49: Covering Dr. Jimenez notified of pt having manic, demanding behavior despite having already received scheduled meds and prns including thorazine within time frame ordered in JUL. Pt requesting and fixating on atarax (not ordered) at the time. notified of patient request; scheduled and prn benadryl discontinued and atarax prn ordered and given with +effect, patient sleeping for a while after administered. Tonight pt has been alternating between calm, cooperative and talkative behavior versus other times having outbursts including shouting at staff and approaching/not respecting staff physical space and boundaries. Security was requested to bedside to assist with calming and de-escalating patient, staff safety at 04:00. Pt was agreeable to and med compliant with prn thorazine (given early per MD dumont) following de-escalation. Pt continues with 1:1 male sitter and video monitor in room. Nursing sewing room supervisor rounded to bedside; discussed that psych was consulted and appears to have been seen during the day though report and recommendations are still pending at this time. Original Note: Assumed care of patient at 19:00. Phlebotomy contacted via [id number] to please come draw previously ordered ammonia level. 1:1 sitter and VMT continue.
[2023-11-25] MEDS: Enoxaparin Sodium 40 MG/0.4 ML SYRINGE SUBCUT (19:59)
[2023-11-25] MEDS: diphenhydrAMINE HCL 25 MG CAPSULE PO (20:00)
[2023-11-25] MEDS: Atorvastatin Calcium 80 MG TABLET PO (20:00)
[2023-11-25 20:17] LABS: Ammonia 19 umol/L (13-55)
[2023-11-25] MEDS: Albuterol Sulfate 90 MCG 8 GM INHALER 2 PUFF INHALE (23:21)
[2023-11-25 23:23] VITALS: PULSE 100; RESP 16; O2SAT 97
[2023-11-25] MEDS: hydrOXYzine HCL 50 MG TABLET PO (23:45)
[2023-11-26 00:45] VITALS: RESP 16
[2023-11-26 02:12] VITALS: RESP 16
[2023-11-26 03:50] VITALS: BP 120/66; PULSE 95; RESP 18; TEMP 36.1; O2SAT 100
[2023-11-26] MEDS: chlorproMAZINE HCl 100 MG TABLET PO ×4 (04:07→21:00)
[2023-11-26] MEDS: Nicotine Polacrilex 2 MG GUM BUCCAL ×2 (04:10→09:17)
[2023-11-26] MEDS: Throat Lozenge, Medicated LOZENGE 1 LOZENGE MUCOUS MEM (05:33)
[2023-11-26] MEDS: Levothyroxine Sodium 75 MCG TABLET PO (05:33)
[2023-11-26] MEDS: Omeprazole 20 MG CAPSULE.DR PO (05:33)
[2023-11-26] MEDS: hydrOXYzine HCL 50 MG TABLET PO ×2 (05:33→11:31)
[2023-11-26 06:46] LABS: Anion Gap 16 (12-20); Blood Urea Nitrogen 12 mg/dL (9-16); Calcium 9.5 mg/dL (8.4-10.2); Carbon Dioxide 23 mmol/L (22-29); Chloride 101 mmol/L (96-108); Estimated Glomerular Filt Rate > 60; Glucose Random 96 mg/dL (60-115); Potassium 4.7 mmol/L (3.3-5.1); Sodium 135 mmol/L (135-145)
[2023-11-26 08:32] VITALS: BP 138/80; PULSE 89; RESP 12; TEMP 36.6; O2SAT 100
[2023-11-26] MEDS: Nicotine 21 MG PATCH.TD24 TRANSDERMA (09:17)
[2023-11-26] MEDS: Metoprolol Succinate ER 25 MG TAB.ER.24H PO (09:17)
[2023-11-26] MEDS: Benztropine Mesylate 1 MG TABLET 2 MG PO (09:17)
[2023-11-26] MEDS: Lidocaine 4 % Patch ADH..PATCH 2 PATCH TRANSDERMA (09:18)
--- NOTE | 2023-11-26 09:30 | PC.NURSE ---
Administered morning medications per JUL. Patient placed morning medications into mouth and then spit Depakote ER and Augmentin tablets into coffee cup. Patient refused to take these three tablets. Patient provided education and verbalized understanding. Continued to refuse medications. Medications retrieved and appropriately disposed of. Dr. Adarsh lyons.
--- NOTE | 2023-11-26 10:17 | P.CDIM_ITS ---
PROVIDER RESPONSE TEXT: To clarify, the appropriate diagnosis supported by the clinical indicators: Metabolic QUERY TEXT: PHYSICIAN'S DOCUMENTATION REQUEST Date of Query: 11/24/2023 10:45 AM EDT Patient Name: Jasen Allen Admit Date: 11/23/2023 Dear Sophie BARRAZA, A review of the medical record indicates additional documentation may be needed. Please review below and update the documentation accordingly. Clinical Indicators: Per H&P 11/23/23: somnolent but arousable but confused and unable to provide history Acute encephalopathy CT head negative Based on the above, please further specify, in the Progress Notes, the known or suspected type of the documented encephalopathy: Metabolic Septic Toxic Toxic metabolic Hypertensive Anoxic Alcoholic Hepatic (reported as hepatic failure and needs further specificity as to acute, subacute, or chronic) Due to a specified condition (such as UTI, hyponatremia, CVA, etc.) Other (explain) Clinically unable to determine (explain) Thank you, Anne Felix RN Use of terms such as suspected, likely, concern for, or probable (associated with a specific diagnosi s that is being evaluated, monitored, or treated as if it exists) are acceptable and can be coded in the inpatient se tting, when documented at the time of discharge. Please use your independent medical judgment in providing your response. THIS QUERY IS PART OF THE PERMANENT MEDICAL RECORD
--- NOTE | 2023-11-26 11:36 | PC.NURSE ---
1120- patient exhibiting behavioral outbursts. Yelling profanity at staff, throwing items around the room, and attempting to lock himself in the restroom. Security called to bedside. Security and nursing staff able to verbally redirect patient and de-escalate behavior. Patient offered PRN medication and accepted. See MAR for details.
[2023-11-26] MEDS: LORazepam 1 MG TABLET PO ×2 (14:37→21:00)
[2023-11-26] MEDS: Ibuprofen 800 MG TABLET PO (14:41)
--- NOTE | 2023-11-26 15:02 | MHC.CM.PN ---
EMR REVIEWED AND PER MD ROUNDS, PT IS NOT MEDICALLY CLEARED FOR DC. PER PSYCH, WILL NEED AN INPATIENT PSYCH STAY FOR STABILIZATION BEFORE RETURNING HOME.CM WILL CONTINUE TO FOLLOW FOR ANY CHANGE TO DC PLAN.
--- NOTE | 2023-11-26 16:05 | MHC.CARE ---
Patient seen by CARE team, is inpatient LOC at this time.
[2023-11-26 16:31] VITALS: BP 143/67; PULSE 70; RESP 18; TEMP 36.8; O2SAT 98
--- NOTE | 2023-11-26 16:39 | HO.PM.IMPN ---
Subjective Subjective Date of Service: 11/26/23 Interval History: hyponatremia Review of Systems denies new c/o mental status improving still seems manic Physical Exam Vital Signs: Vital Signs: Last Vital Signs Temp 98.2 F 11/26/23 16:31 Pulse 70 11/26/23 16:31 Resp 18 11/26/23 16:31 BP 143/67 H 11/26/23 16:31 Pulse Ox 98 11/26/23 16:31 O2 Del Method Room Air 11/26/23 16:31 BMI result Body Mass Index 50.6 Appearance: Alert.? Oriented,mental status seems improving .? cvs: rrr, [id number] , no murmur res: clear to auscultation ,no rhonchii or wheezing abd: no rebound or guarding ,nt, bs present. ext pulses present , no cyanosis . neuro: nonfocal. Objective Data Active Medications Acetaminophen (Acetaminophen 325 Mg Tablet) 650 mg PO Q6H PRN PRN Reason: Pain, Mild (Pain Scale 1-3), fever or headache Albuterol Sulfate (Albuterol Sulfate 90 Mcg 8 Gm Inhaler) 2 puff INHALE Q4H PRN PRN Reason: Shortness Of Breath Or Wheezing Last Admin: 11/25/23 23:21 Dose: 2 puff Documented By: KEON Amoxicillin/Clavulanate Potassium (Amoxicillin/Potassium Clav 875 Mg Tablet) 875 mg PO BID [facility] Last Admin: 11/26/23 14:48 Dose: Not Given Documented By: LAILA Non-Admin Reason: Patient Refused Atorvastatin Calcium (Atorvastatin Calcium 80 Mg Tablet) 80 mg PO BEDTIME [facility] Last Admin: 11/25/23 20:00 Dose: 80 mg Documented By: CASE Benzocaine (Throat Lozenge, Medicated Lozenge) 1 lozenge MUCOUS MEM Q2H PRN PRN Reason: Sore Throat Last Admin: 11/26/23 05:33 Dose: 1 lozenge Documented By: CASE Benztropine Mesylate (Benztropine Mesylate 1 Mg Tablet) 1 mg PO BID [facility] Calcium Carbonate (Calcium Carbonate 750 Mg Tab.Chew) 750 mg PO Q4H PRN PRN Reason: Heartburn Chlorpromazine HCl (Chlorpromazine Hcl 100 Mg Tablet) 100 mg PO Q8H PRN PRN Reason: agitation/psychosis Last Admin: 11/26/23 12:44 Dose: 100 mg Documented By: LAILA Divalproex Sodium (Divalproex Sodium Er 500 Mg Tab.Er.24h) 1,000 mg PO BID [facility] Last Admin: 11/26/23 14:48 Dose: Not Given Documented By: LAILA Non-Admin Reason: Patient Refused Docusate Sodium (Docusate Sodium 100 Mg Capsule) 100 mg PO BID PRN PRN Reason: Constipation Enoxaparin Sodium (Enoxaparin Sodium 40 Mg/0.4 Ml Syringe) 40 mg SUBCUT Q24H [facility] Last Admin: 11/25/23 19:59 Dose: 40 mg Documented By: CASE Hydroxyzine HCl (Hydroxyzine Hcl 50 Mg Tablet) 50 mg PO Q6H PRN PRN Reason: Anxiety Last Admin: 11/26/23 11:31 Dose: 50 mg Documented By: HAILY Ibuprofen (Ibuprofen 800 Mg Tablet) 800 mg PO Q6H PRN PRN Reason: Body-ache/toothache Last Admin: 11/26/23 14:41 Dose: 800 mg Documented By: LAILA Levothyroxine Sodium (Levothyroxine Sodium 75 Mcg Tablet) 75 mcg PO DAILY@0600 [facility] Last Admin: 11/26/23 05:33 Dose: 75 mcg Documented By: CASE Lidocaine (Lidocaine 4 % Patch Adh..Patch) 2 patch TRANSDERMA DAILY [facility]; Protocol Last Admin: 11/26/23 09:18 Dose: 2 patch Documented By: LAILA Lorazepam (Lorazepam 1 Mg Tablet) 1 mg PO BEDTIME [facility] Last Admin: 11/25/23 20:01 Dose: 1 mg Documented By: CASE Lorazepam (Lorazepam 1 Mg Tablet) 1 mg PO BID PRN PRN Reason: Anxiety Last Admin: 11/26/23 14:37 Dose: 1 mg Documented By: LAILA Magnesium Hydroxide (Milk Of Magnesia 30 Ml Oral.Susp) 30 ml PO DAILY PRN PRN Reason: Constipation Metoprolol Succinate (Metoprolol Succinate Er 25 Mg Tab.Er.24h) 25 mg PO DAILY [facility]; Protocol Last Admin: 11/26/23 09:17 Dose: 25 mg Documented By: LAILA Nicotine (Nicotine 21 Mg Patch.Td24) 21 mg TRANSDERMA DAILY [facility] Last Admin: 11/26/23 09:17 Dose: 21 mg Documented By: LAILA Nicotine Polacrilex (Nicotine Polacrilex 2 Mg Gum) 2 mg BUCCAL Q2H PRN PRN Reason: Nicotine Cravings Last Admin: 11/26/23 09:17 Dose: 2 mg Documented By: LAILA Omeprazole (Omeprazole 20 Mg Capsule.Dr) 20 mg PO DAILY@0630 [facility] Last Admin: 11/26/23 05:33 Dose: 20 mg Documented By: CASE Sodium Chloride (0.9 % Sodium Chloride Flush 3 Ml Syringe) 3 ml IVFLUSH QSHIFT [facility] Last Admin: 11/26/23 09:37 Dose: Not Given Documented By: LAILA Non-Admin Reason: Previously Administered Labs 11/24/23 06:13 11/26/23 05:58 Labs: Laboratory Results - last 24 hr 11/25/23 11/26/23 20:06 05:58 Hold Purple Top SEE NOTE Anion Gap 16 Estim Creat Clear Calc 158.0 Estimated GFR > 60 Random Glucose 96 Calcium 9.5 Ammonia 19 Assessment and Plan (1) Bipolar 1 disorder, manic, moderate: Status: Acute Plan 43 year old male with history of GERD, bipolar disorder, htn, hypothyroidism presented to the ED from [facility] where he has been residing for management of vasquez admitted for further management of acute hyponatremia with acute encephalopathy Acute metabolic encephalopathy- resolving, but remains delusional, manic hyponatremia improved Head CT negative for acute intracranial abn,No uremia, hypercapnia. Ammonia WNL. TSH slighlty elevated at 6, free T4 normal Acute hyponatremia -Ur osm 212, serum osm 272, Na 123. Likely low solute with underlying SIADH secondary to medication use -Na [phone] nephro consult, moniter bmp daily,keep Fluid restrictions to 1.5L, dc ivf Acute hyperkalemia resolved hold lisinopril Suspect DOLORES-cpap prn while napping/sleeping. Sleep study ordered Possible aspiration pneumonitis -CTA chest with bilateral lower lobe tree in bud opacities -no leukocytosis, fevers. No hypoxia while awake. Asymptomatic -monitor for now Hypothyroidism -TSH 6, free t4 normal -continue current dose levothyroxone pending free t4 bipolar disorder patient seems manic continue mood stabilizers. given extra thorazine ,seems still manic psych follow up GERD-ppi dvt prophylaxis- lovenox. full code Ongoing inpt stay: hyponatremia requiring slow replacement with serial monitoring for overcorrection and expert consulation Quality Stroke Does the patient have a stroke diagnosis?: No VTE Prior VTE?: No VTE Risk Level:: Medical - moderate - high VTE Device Contraindication: Treatment Not Indicated VTE Drug Contraindication: N/A - Med Ordered
--- NOTE | 2023-11-26 17:24 | P.CDIM_ITS ---
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 Please review below and update the documentation accordingly. 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 Please use your independent medical judgment in providing your response. THIS QUERY IS PART OF THE PERMANENT MEDICAL RECORD
--- NOTE | 2023-11-26 17:25 | PM.PSYCN ---
History of Present Illness Chief Complaint: hyponatremia, ams HPI Past Psychiatric History: INpt: jeffry 11/2023, reports multiple in the past OP: Dr. Cartwright, therapist is Dr. Vilma Hopkins. Pt reports he is connected with [facility] services Past med trials- risperidone, haldol, thorazine, depakote, lithium [facility] Medical History History of substance abuse HTN (hypertension) Bipolar disorder GERD (gastroesophageal reflux disease) Diagnostics Vital Signs (24Hr): Vital Signs - 24 hr 11/25/23 19:07 11/25/23 23:23 11/26/23 00:45 Temperature 98.3 F Pulse Rate 96 100 Respiratory Rate 20 16 16 Blood Pressure 132/71 Pulse Oximetry 94 Oxygen Delivery Method Room Air 11/26/23 02:12 11/26/23 03:50 11/26/23 08:32 Temperature 97.0 F 97.8 F Pulse Rate 95 89 Respiratory Rate 16 18 12 Blood Pressure 120/66 138/80 Pulse Oximetry 100 100 Oxygen Delivery Method Room Air Room Air 11/26/23 16:31 Temperature 98.2 F Pulse Rate 70 Respiratory Rate 18 Blood Pressure 143/67 H Pulse Oximetry 98 Oxygen Delivery Method Room Air BMI result Body Mass Index 50.6 Labs 11/24/23 06:13 11/26/23 05:58 Labs: Laboratory Results - last 48 hr 11/24/23 11/25/23 11/25/23 18:04 01:03 06:49 Hold Purple Top SEE NOTE Sodium 133 L 134 L 136 Potassium 5.5 H 4.9 4.7 Chloride 95 L 98 98 Carbon Dioxide 30 H 27 27 Anion Gap 14 14 16 BUN Creatinine Estim Creat Clear Calc Estimated GFR Random Glucose Calcium Ammonia 11/25/23 11/25/23 11/25/23 12:00 12:24 20:06 Hold Purple Top SEE NOTE Sodium 133 L Potassium 4.8 Chloride 99 Carbon Dioxide 25 Anion Gap 14 BUN Creatinine Estim Creat Clear Calc Estimated GFR Random Glucose Calcium Ammonia 19 11/26/23 05:58 Hold Purple Top SEE NOTE Sodium 135 Potassium 4.7 Chloride 101 Carbon Dioxide 23 Anion Gap 16 BUN 12 Creatinine 0.90 Estim Creat Clear Calc 158.0 Estimated GFR > 60 Random Glucose 96 Calcium 9.5 Ammonia Imaging Radiology Impressions: ITS Impressions Chest X-Ray 11/23/23 13:05 IMPRESSION: 1. Widening of the superior mediastinum. Recommend further evaluation with CT scan of the chest. 2. Increased perihilar groundglass opacities. Head CT 11/23/23 15:01 IMPRESSION: Unremarkable non-contrast CT of the brain. Chest CTA 11/23/23 16:04 IMPRESSION: 1. No acute aortic abnormality. 2. Mild consolidation and tree-in-bud opacities of the bilateral lower lobes, left greater than right, likely infectious/inflammatory in etiology. 3. Multiple prominent mediastinal lymph nodes, likely reactive. Medications Medications Current Medications Acetaminophen (Acetaminophen 325 Mg Tablet) 650 mg PO Q6H PRN PRN Reason: Pain, Mild (Pain Scale 1-3), fever or headache Albuterol Sulfate (Albuterol Sulfate 90 Mcg 8 Gm Inhaler) 2 puff INHALE Q4H PRN PRN Reason: Shortness Of Breath Or Wheezing Last Admin: 11/25/23 23:21 Dose: 2 puff Amoxicillin/Clavulanate Potassium (Amoxicillin/Potassium Clav 875 Mg Tablet) 875 mg PO BID [facility] Last Admin: 11/26/23 14:48 Dose: Not Given Atorvastatin Calcium (Atorvastatin Calcium 80 Mg Tablet) 80 mg PO BEDTIME [facility] Last Admin: 11/25/23 20:00 Dose: 80 mg Benzocaine (Throat Lozenge, Medicated Lozenge) 1 lozenge MUCOUS MEM Q2H PRN PRN Reason: Sore Throat Last Admin: 11/26/23 05:33 Dose: 1 lozenge Benztropine Mesylate (Benztropine Mesylate 1 Mg Tablet) 1 mg PO BID [facility] Calcium Carbonate (Calcium Carbonate 750 Mg Tab.Chew) 750 mg PO Q4H PRN PRN Reason: Heartburn Chlorpromazine HCl (Chlorpromazine Hcl 100 Mg Tablet) 100 mg PO Q6H PRN PRN Reason: agitation/psychosis Chlorpromazine HCl (Chlorpromazine Hcl 100 Mg Tablet) 100 mg PO TID [facility] Docusate Sodium (Docusate Sodium 100 Mg Capsule) 100 mg PO BID PRN PRN Reason: Constipation Enoxaparin Sodium (Enoxaparin Sodium 40 Mg/0.4 Ml Syringe) 40 mg SUBCUT Q24H [facility] Last Admin: 11/25/23 19:59 Dose: 40 mg Hydroxyzine HCl (Hydroxyzine Hcl 50 Mg Tablet) 50 mg PO Q6H PRN PRN Reason: Anxiety Last Admin: 11/26/23 11:31 Dose: 50 mg Valproic Acid 1,000 mg/ (Dextrose) 60 mls @ 60 mls/hr IV BID [facility] Ibuprofen (Ibuprofen 800 Mg Tablet) 800 mg PO Q6H PRN PRN Reason: Body-ache/toothache Last Admin: 11/26/23 14:41 Dose: 800 mg Levothyroxine Sodium (Levothyroxine Sodium 75 Mcg Tablet) 75 mcg PO DAILY@0600 [facility] Last Admin: 11/26/23 05:33 Dose: 75 mcg Lidocaine (Lidocaine 4 % Patch Adh..Patch) 2 patch TRANSDERMA DAILY [facility]; Protocol Last Admin: 11/26/23 09:18 Dose: 2 patch Lorazepam (Lorazepam 1 Mg Tablet) 1 mg PO BEDTIME [facility] Last Admin: 11/25/23 20:01 Dose: 1 mg Lorazepam (Lorazepam 1 Mg Tablet) 2 mg PO BID PRN PRN Reason: Anxiety Magnesium Hydroxide (Milk Of Magnesia 30 Ml Oral.Susp) 30 ml PO DAILY PRN PRN Reason: Constipation Metoprolol Succinate (Metoprolol Succinate Er 25 Mg Tab.Er.24h) 25 mg PO DAILY [facility]; Protocol Last Admin: 11/26/23 09:17 Dose: 25 mg Nicotine (Nicotine 21 Mg Patch.Td24) 21 mg TRANSDERMA DAILY [facility] Last Admin: 11/26/23 09:17 Dose: 21 mg Nicotine Polacrilex (Nicotine Polacrilex 2 Mg Gum) 2 mg BUCCAL Q2H PRN PRN Reason: Nicotine Cravings Last Admin: 11/26/23 09:17 Dose: 2 mg Omeprazole (Omeprazole 20 Mg Capsule.Dr) 20 mg PO DAILY@0630 [facility] Last Admin: 11/26/23 05:33 Dose: 20 mg Sodium Chloride (0.9 % Sodium Chloride Flush 3 Ml Syringe) 3 ml IVFLUSH QSHIFT [facility] Last Admin: 11/26/23 09:37 Dose: Not Given Allergies Allergies Allergy/AdvReac Type Severity Reaction Status Date / Time No Known Allergies Allergy Verified 11/23/23 13:48 Assessment & Plan Total time managing care of this patient today ____ minutes.
[2023-11-26] MEDS: HaloperidoL 5 MG TABLET PO (17:35)
[2023-11-26] MEDS: LORazepam 2 MG/ML VIAL 1 MG IVPUSH (17:35)
[2023-11-26] MEDS: 0.9 % Sodium Chloride Flush 3 ML SYRINGE IVFLUSH ×2 (17:40→21:01)
--- NOTE | 2023-11-26 18:07 | PC.NURSE ---
Addendum entered by Renny Wolf RN 11/26/23 18:07: Dr. Altamirano and Kasandra Maldonado aware of patient's behaviors. Patient ran out of room at approximately 1750. Patient ran through staff and into stairwell. Difficult to redirect patient. Security and behavioral health staff at patient's side providing verbal re-direction. Patient walked back to room without incident. Original Note: Security called multiple times throughout shift due to patient's outbursts and need for frequent re-direction. Patient walking into other patient's rooms, barricading self in bathroom, and being verbally abusive towards staff. Utilizing PRNs. Dr. Altamirano and SUPERVISOR BENZENE REFINING Kasandra Maldonado
[2023-11-26] MEDS: Enoxaparin Sodium 40 MG/0.4 ML SYRINGE SUBCUT (20:59)
[2023-11-26] MEDS: Benztropine Mesylate 1 MG TABLET PO (21:00)
[2023-11-26] MEDS: Amoxicillin/Potassium Clav 875 MG TABLET PO (21:00)
[2023-11-26] MEDS: Atorvastatin Calcium 80 MG TABLET PO (21:00)
[2023-11-26 21:30] VITALS: BP 136/87; PULSE 97; RESP 18; TEMP 35.9; O2SAT 96
[2023-11-26] MEDS: Valproic Acid (as Sodium Salt) 1,000 MG in Dextrose 5 % 50 ML 60 MG IV (23:11)
[2023-11-27] MEDS: Ziprasidone Mesylate 20 MG VIAL 10 MG IM (00:38)
[2023-11-27 00:54] VITALS: PULSE 68; RESP 16; O2SAT 98
[2023-11-27 01:04] VITALS: BP 133/68; PULSE 99; RESP 16; TEMP 36.4; O2SAT 95
--- NOTE | 2023-11-27 01:15 | PC.NURSE ---
at 1248 am pt is having manic episode but afeter talking to him he is willing to receive geodon medication to treat his vasquez MD at bedside pts vss. nursing sign shop supervisor also present .
--- NOTE | 2023-11-27 05:39 | PM.EVENT ---
Event Note Date of Service: 11/27/23 Event Note: 12:12 AM - Contacted by nursing to evaluate patient. He was getting aggressive and trying to leave. Security was contacted. Patient was evaluated. He was having flight of ideas and making no sense. He was also having behavioral changes from cooperative to uncooperative, from happy to sad/crying and making jokes with security staff. Patient noted to be defiant at times but not aggressive. At some point, he suddenly stood up, bend forward to show me his buttocks. Geodon 10 mg IM X1 ordered. Eventually, he became cooperative and allowed his nurse to inject Geodon. He was pleased with this intervention as it would make him feel relaxed. He was refusing his CPAP mask. 5:20 AM - Evaluated patient. He is resting comfortable at the moment. Time Spent With Patient Time: Total time managing care of this patient today ____ minutes.
[2023-11-27] MEDS: Omeprazole 20 MG CAPSULE.DR PO (06:18)
[2023-11-27] MEDS: Levothyroxine Sodium 75 MCG TABLET PO (06:18)
[2023-11-27] MEDS: Throat Lozenge, Medicated LOZENGE 1 LOZENGE MUCOUS MEM (06:22)
[2023-11-27] MEDS: 0.9 % Sodium Chloride Flush 3 ML SYRINGE IVFLUSH (07:21)
[2023-11-27 07:22] VITALS: BP 124/75; PULSE 92; RESP 14; TEMP 36.5; O2SAT 99
[2023-11-27] MEDS: Nicotine 21 MG PATCH.TD24 TRANSDERMA (07:41)
[2023-11-27] MEDS: Metoprolol Succinate ER 25 MG TAB.ER.24H PO (07:42)
[2023-11-27] MEDS: Benztropine Mesylate 1 MG TABLET PO (07:42)
[2023-11-27] MEDS: chlorproMAZINE HCl 100 MG TABLET PO (07:42)
[2023-11-27] MEDS: Lidocaine 4 % Patch ADH..PATCH 2 PATCH TRANSDERMA (07:42)
[2023-11-27] MEDS: Amoxicillin/Potassium Clav 875 MG TABLET PO (07:42)
[2023-11-27] MEDS: Valproic Acid 250 MG CAPSULE 1000 MG PO (08:44)
--- NOTE | 2023-11-27 10:14 | P.PNNP_ITS ---
Subjective Subjective Date of Service: 11/27/23 Interval history: hyponatremia Physical Exam 2 Vital Signs: Vital Signs: Last Vital Signs Temp 97.7 F 11/27/23 07:22 Pulse 92 11/27/23 07:22 Resp 14 11/27/23 07:22 BP 124/75 11/27/23 07:22 Pulse Ox 99 11/27/23 07:22 O2 Del Method Room Air 11/27/23 07:22 BMI result Body Mass Index 50.6 Neck: Neck: Yes supple Resp: Auscultation: clear to auscultation bilaterally Cardio: Palpation: no palpable S3 Heart sounds: no rubs GI: Palpation (GI): Soft to palpation Auscultation: normal bowel sounds Neuro: Motor exam (neuro): no asterixis Objective Data Labs 11/24/23 06:13 11/26/23 05:58 Procedures Date of Service Date of Service: 11/27/23 Assessment & Plan Assessment and plan (1) Acute hyponatremia: Status: Acute (2) Acute hyperkalemia: Status: Acute Plan Hypotonic hyponatremia Low urine Sodium suggestive of hypoperfusion from hypovolumia Na gradually corrected Rate of correction acceptable Keep on PO water restriction Monitor sodium as needed Time Spent With Patient Time: Total time managing care of this patient today ____ minutes. Progress Note: Quality Stroke Does the patient have a stroke diagnosis?: No
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
== END 2023-11-27 12:17 | DRG 640 ==
LOC: HO.ED 15:19 → HO.EDOVER 17:49 → HO.S3 11-24 08:25
PROVIDERS: Social Worker; Admitting Provider Physician Assistant; Emergency Provider Emergency Medicine; Visit Provider Internal Medicine
DX: E87.1 Hypo-osmolality and hyponatremia (principal); G93.41 Metabolic encephalopathy; J69.0 Pneumonitis due to inhalation of food and vomit; Z68.43 Body mass index [BMI] 50.0-59.9, adult; F31.12 Bipolar disorder, current episode manic without psychotic features, moderate; F17.210 Nicotine dependence, cigarettes, uncomplicated; Z71.6 Tobacco abuse counseling; K21.9 Gastro-esophageal reflux disease without esophagitis; G47.33 Obstructive sleep apnea (adult) (pediatric); E03.9 Hypothyroidism, unspecified; E87.5 Hyperkalemia; I95.9 Hypotension, unspecified; Z79.890 Hormone replacement therapy; Z79.899 Other long term (current) drug therapy
CPT/HCPCS: 36415; 70450; 71045; 71275; 80048; 80051; 80053; 80164; 80307; 81001; 82140; 82533; 82570; 82803; 82947; 83605; 83930; 83935; 84300; 84439; 84443; 84484; 85025; 93005; 94640; 94660; 99285; J1650; J2060; J3486; Q9967; S9485

== ENCOUNTER → 2023-11-23 13:46 | Outpatient (BNV) | payer MEDICARE, SELFPAY | PROVIDERS: Admitting Provider Physician Assistant; Emergency Provider Emergency Medicine; Visit Provider Internal Medicine | DX: R07.9 Chest pain, unspecified (principal) | CPT/HCPCS: 93010 ==

== ENCOUNTER → 2023-11-23 17:34 | Outpatient (BNV) | payer MEDICARE, SELFPAY | PROVIDERS: Admitting Provider Physician Assistant; Emergency Provider Emergency Medicine; Visit Provider Social Worker | DX: F31.12 Bipolar disorder, current episode manic without psychotic features, moderate (principal) | CPT/HCPCS: 99222 ==

== ENCOUNTER → 2023-11-23 17:34 | Outpatient (BNV) | payer MEDICARE, SELFPAY | PROVIDERS: Admitting Provider Physician Assistant; Emergency Provider Emergency Medicine; Visit Provider Physician Assistant | DX: E87.1 Hypo-osmolality and hyponatremia (principal); E66.01 Morbid (severe) obesity due to excess calories; F31.12 Bipolar disorder, current episode manic without psychotic features, moderate | CPT/HCPCS: 99223; 99231; 99232; 99239; 99499 ==

== ENCOUNTER → 2023-11-23 17:34 | Outpatient (BNV) | payer MEDICARE, SELFPAY | PROVIDERS: Admitting Provider Physician Assistant; Emergency Provider Emergency Medicine; Visit Provider Internal Medicine Hypertension Specialist | DX: E87.1 Hypo-osmolality and hyponatremia (principal); E87.5 Hyperkalemia | CPT/HCPCS: 99223; 99232 ==

== ENCOUNTER 2023-11-27 12:59 | Inpatient (IN) | payer MEDICARE, SELFPAY ==
--- NOTE | ~2023-11-27 | XR_ITS ---
EXAMINATION: XR FACIAL BONES CLINICAL INFORMATION: Pain after a fall COMPARISON: None available. TECHNIQUE: 3 views of the facial bones were obtained. FINDINGS: The paranasal sinuses are clear. Orbital rims intact. No fracture or destructive process. XR/XR facial bones min 3V IMPRESSION: Negative
--- NOTE | 2023-11-27 12:52 | MHC.CARE ---
Re: Jasen Allen, spoke with Keerthi Singleton at [facility], she reports case is pending and reference number is [id number]. They will reach out to UR on the inpatient unit.
--- NOTE | 2023-11-27 13:19 | PM.EVENT ---
Documented by User: Janina Cortes APRN 11/27/23 13:22 Event Note Date of Service: 11/27/23 Event Note: Transfer note. Pt is non violent, manic, did attempt to munoz to the elevator while on the medical unit. Severe DOLORES-refuses CPAP-O2 2L nasal cannula at HS ordered. Hyponatremia-Fluid restrict 1.5 litres daily, can progress as this resolves Hyperkalemia resolved- repeat BMP before re-start of Lisinopril Monitor TSH on a regular basis Time Spent With Patient Time: Total time managing care of this patient today ____ minutes. Documented by User: Diaz Hernandez MD 12/01/23 12:02 Event Note Date of Service: 12/01/23
[2023-11-27] MEDS: chlorproMAZINE HCl 100 MG TABLET PO (17:06)
[2023-11-27] MEDS: LORazepam 1 MG TABLET 2 MG PO ×2 (17:06→20:21)
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
[2023-11-27] MEDS: Nicotine 21 MG PATCH.TD24 TRANSDERMA (18:38)
[2023-11-27] MEDS: diphenhydrAMINE HCL 25 MG CAPSULE 50 MG PO (20:24)
[2023-11-27] MEDS: Benztropine Mesylate 1 MG TABLET 2 MG PO (20:24)
[2023-11-27] MEDS: Atorvastatin Calcium 80 MG TABLET PO (20:24)
[2023-11-27] MEDS: Amoxicillin/Potassium Clav 875 MG TABLET PO (20:25)
[2023-11-27] MEDS: Melatonin 3 MG TABLET 6 MG PO (20:26)
[2023-11-28] MEDS: hydrOXYzine HCL 25 MG TABLET PO ×3 (01:54→14:43)
[2023-11-28] MEDS: Nicotine Polacrilex 2 MG GUM BUCCAL ×2 (05:07→14:47)
[2023-11-28] MEDS: diphenhydrAMINE HCL 25 MG CAPSULE 50 MG PO ×2 (05:17→23:53)
[2023-11-28] MEDS: chlorproMAZINE HCl 100 MG TABLET PO ×3 (05:18→23:53)
--- NOTE | 2023-11-28 06:19 | PC.NURSE ---
Patient began to escalate at approximately 0500. This has been rising and falling, with security having visited the floor twice as of the time of this writing. This patient becomes extremely verbally aggressive, stating to his 1:1 at one point Black isn't beautiful, black is the color of shit. At that time, this software writer intervened to little avail. Another [facility] [place] places with the former, as this software writer felt that the racial & verbal abuse was not to be tolerated.
[2023-11-28] MEDS: Omeprazole 20 MG CAPSULE.DR PO (07:13)
[2023-11-28] MEDS: Levothyroxine Sodium 75 MCG TABLET PO (07:13)
[2023-11-28 08:10] VITALS: BP 124/87; PULSE 102; RESP 17; TEMP 37.3; O2SAT 98
[2023-11-28] MEDS: Divalproex Sodium ER 500 MG TAB.ER.24H 1000 MG PO ×2 (08:12→23:53)
[2023-11-28] MEDS: Benztropine Mesylate 1 MG TABLET 2 MG PO ×2 (08:12→23:53)
[2023-11-28] MEDS: LORazepam 1 MG TABLET 2 MG PO ×3 (08:13→23:53)
[2023-11-28] MEDS: Lactulose 20 GM/30 ML SOLUTION PO (08:14)
[2023-11-28] MEDS: Amoxicillin/Potassium Clav 875 MG TABLET PO ×2 (08:14→23:54)
[2023-11-28] MEDS: Lidocaine 4 % Patch ADH..PATCH 2 PATCH TRANSDERMA (08:16)
[2023-11-28 08:37] LABS: Estimated Average Glucose 117 mg/dL; Hemoglobin A1c % 5.7 % (<6.0)
[2023-11-28 08:48] LABS: Cholesterol 174 mg/dL (<200); HDL Cholesterol 39 mg/dL (>40); LDL Cholesterol Calculated 105 mg/dL (<100); Magnesium 2.1 mg/dL (1.6-2.6); Triglycerides 154 mg/dL (<150)
[2023-11-28 09:05] LABS: Free T4 (Free Thyroxine) 0.97 ng/dL (0.71-1.85); Thyroid Stimulating Hormone 8.11 uIU/mL (0.32-4.0)
[2023-11-28 09:30] LABS: Folate 14.3 ng/mL (> or = 4.0)
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
[2023-11-28 10:19] LABS: Vitamin B12 410 pg/mL (200-900)
[2023-11-28] MEDS: Ibuprofen 800 MG TABLET PO (14:43)
[2023-11-28 14:44] VITALS: BP 135/77; PULSE 80
[2023-11-28] MEDS: Metoprolol Succinate ER 25 MG TAB.ER.24H PO (14:44)
[2023-11-28 15:02] VITALS: BP 150/82; PULSE 116; RESP 19; TEMP 38.2; O2SAT 95
[2023-11-28] MEDS: Acetaminophen 325 MG TABLET 650 MG PO (18:34)
[2023-11-28] MEDS: OLANZapine 10 MG TABLET PO (18:36)
[2023-11-28 19:29] LABS: Influenza A PCR NEGATIVE (Negative); Influenza B PCR NEGATIVE (Negative); Resp Syncy Virus RNA Qual PCR NEGATIVE (Negative); SARS COV2 PCR INHOUSE NEGATIVE (Negative)
[2023-11-28] MEDS: Melatonin 3 MG TABLET 6 MG PO (23:53)
[2023-11-28] MEDS: Atorvastatin Calcium 80 MG TABLET PO (23:53)
[2023-11-29] MEDS: hydrOXYzine HCL 25 MG TABLET PO ×2 (01:06→18:50)
[2023-11-29] MEDS: diphenhydrAMINE HCL 25 MG CAPSULE 50 MG PO ×3 (01:06→22:50)
[2023-11-29] MEDS: traZODone HCL 50 MG TABLET PO (01:06)
[2023-11-29] MEDS: Ibuprofen 800 MG TABLET PO ×2 (01:06→18:49)
[2023-11-29] MEDS: Acetaminophen 325 MG TABLET 650 MG PO (01:06)
[2023-11-29] MEDS: Levothyroxine Sodium 75 MCG TABLET PO (06:06)
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
[2023-11-29 08:00] VITALS: BP 134/83; PULSE 88; TEMP 36.6; O2SAT 97
[2023-11-29] MEDS: Lidocaine 4 % Patch ADH..PATCH 2 PATCH TRANSDERMA (08:45)
[2023-11-29 08:46] VITALS: BP 134/83; PULSE 88
[2023-11-29] MEDS: Lactulose 20 GM/30 ML SOLUTION PO (08:46)
[2023-11-29] MEDS: Amoxicillin/Potassium Clav 875 MG TABLET PO ×2 (08:46→22:49)
[2023-11-29] MEDS: Metoprolol Succinate ER 25 MG TAB.ER.24H PO (08:46)
[2023-11-29] MEDS: Benztropine Mesylate 1 MG TABLET 2 MG PO ×2 (08:48→22:49)
[2023-11-29] MEDS: Divalproex Sodium ER 500 MG TAB.ER.24H 1000 MG PO ×2 (08:49→22:45)
[2023-11-29] MEDS: Omeprazole 20 MG CAPSULE.DR PO (08:49)
[2023-11-29] MEDS: chlorproMAZINE HCl 100 MG TABLET PO ×3 (09:20→22:47)
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
[2023-11-29] MEDS: LORazepam 1 MG TABLET 2 MG PO ×2 (16:14→22:48)
[2023-11-29] MEDS: Atorvastatin Calcium 80 MG TABLET PO (22:44)
[2023-11-29] MEDS: Melatonin 3 MG TABLET 6 MG PO (22:49)
[2023-11-29] MEDS: Magnesium Hydrox/Alum Hydrox 30 ML ORAL.SUSP PO (22:59)
[2023-11-29] MEDS: Milk of Magnesia 30 ML ORAL.SUSP PO (22:59)
[2023-11-30] MEDS: Levothyroxine Sodium 75 MCG TABLET PO (06:07)
[2023-11-30 08:00] VITALS: BP 124/83; PULSE 86; TEMP 36.3; O2SAT 96
[2023-11-30] MEDS: Omeprazole 20 MG CAPSULE.DR PO (08:26)
[2023-11-30] MEDS: Lactulose 20 GM/30 ML SOLUTION PO (08:26)
[2023-11-30] MEDS: Amoxicillin/Potassium Clav 875 MG TABLET PO ×2 (08:26→21:33)
[2023-11-30] MEDS: Benztropine Mesylate 1 MG TABLET 2 MG PO ×2 (08:27→21:31)
[2023-11-30] MEDS: Divalproex Sodium ER 500 MG TAB.ER.24H 1000 MG PO ×2 (08:27→21:32)
[2023-11-30] MEDS: Metoprolol Succinate ER 25 MG TAB.ER.24H PO (08:27)
[2023-11-30] MEDS: LORazepam 1 MG TABLET 2 MG PO (08:49)
[2023-11-30] MEDS: Lidocaine 4 % Patch ADH..PATCH 2 PATCH TRANSDERMA (10:48)
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
[2023-11-30] MEDS: hydrOXYzine HCL 25 MG TABLET PO (16:47)
[2023-11-30 21:00] VITALS: BP 128/72; PULSE 88; RESP 16; TEMP 37.2; O2SAT 96
[2023-11-30] MEDS: diphenhydrAMINE HCL 25 MG CAPSULE 50 MG PO (21:31)
[2023-11-30] MEDS: Atorvastatin Calcium 80 MG TABLET PO (21:31)
[2023-11-30] MEDS: Melatonin 3 MG TABLET 6 MG PO (21:33)
[2023-11-30] MEDS: chlorproMAZINE HCl 100 MG TABLET PO (21:33)
[2023-12-01] MEDS: LORazepam 1 MG TABLET 2 MG PO (03:05)
[2023-12-01] MEDS: Levothyroxine Sodium 75 MCG TABLET PO (06:11)
[2023-12-01 08:00] VITALS: BP 133/84; PULSE 98; RESP 20; TEMP 36.9; O2SAT 98
[2023-12-01 08:39] LABS: Ammonia 23 umol/L (13-55)
[2023-12-01 08:44] LABS: Valproate 35.5 mcg/mL (50.0-100.0)
[2023-12-01 08:47] LABS: Alanine Aminotransferase 21 U/L (0-40); Albumin Level 3.8 g/dL (3.5-5.0); Alkaline Phosphatase 42 U/L (39-117); Anion Gap 13 (12-20); Aspartate Amino Transferase 15 U/L (5-37); Bilirubin Direct < 0.2 mg/dL (0.0-0.5); Bilirubin Total 0.2 mg/dL (0.0-1.0); Blood Urea Nitrogen 11 mg/dL (9-16); Calcium 9.6 mg/dL (8.4-10.2); Carbon Dioxide 32 mmol/L (22-29); Chloride 99 mmol/L (96-108); Estimated Glomerular Filt Rate > 60; Glucose Random 101 mg/dL (60-115); Potassium 4.8 mmol/L (3.3-5.1); Sodium 139 mmol/L (135-145); Total Protein 6.6 g/dL (6.5-8.0)
[2023-12-01] MEDS: Divalproex Sodium ER 500 MG TAB.ER.24H 1000 MG PO ×2 (08:49→21:16)
[2023-12-01] MEDS: Lactulose 20 GM/30 ML SOLUTION PO (08:49)
[2023-12-01] MEDS: Benztropine Mesylate 1 MG TABLET 2 MG PO ×2 (08:50→21:16)
[2023-12-01] MEDS: Amoxicillin/Potassium Clav 875 MG TABLET PO ×2 (08:50→21:16)
[2023-12-01] MEDS: Omeprazole 20 MG CAPSULE.DR PO (08:50)
[2023-12-01] MEDS: Lidocaine 4 % Patch ADH..PATCH 2 PATCH TRANSDERMA (09:26)
[2023-12-01] MEDS: Metoprolol Succinate ER 25 MG TAB.ER.24H PO (09:26)
[2023-12-01] MEDS: hydrOXYzine HCL 25 MG TABLET PO ×2 (10:57→23:55)
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
[2023-12-01 20:00] VITALS: BP 149/73; PULSE 95; TEMP 36.9; O2SAT 95
[2023-12-01] MEDS: Atorvastatin Calcium 80 MG TABLET PO (21:16)
[2023-12-01] MEDS: diphenhydrAMINE HCL 25 MG CAPSULE 50 MG PO (21:16)
[2023-12-01] MEDS: Ibuprofen 800 MG TABLET PO (21:27)
[2023-12-02] MEDS: Melatonin 3 MG TABLET 6 MG PO ×2 (02:45→22:05)
[2023-12-02 08:00] VITALS: BP 167/87; PULSE 89; RESP 18; TEMP 36.1; O2SAT 98
[2023-12-02] MEDS: Lactulose 20 GM/30 ML SOLUTION PO (08:52)
[2023-12-02] MEDS: Amoxicillin/Potassium Clav 875 MG TABLET PO ×2 (08:53→22:05)
[2023-12-02] MEDS: Omeprazole 20 MG CAPSULE.DR PO (08:53)
[2023-12-02] MEDS: Metoprolol Succinate ER 25 MG TAB.ER.24H PO (08:53)
[2023-12-02] MEDS: Levothyroxine Sodium 75 MCG TABLET PO (08:54)
[2023-12-02] MEDS: Divalproex Sodium ER 500 MG TAB.ER.24H 1000 MG PO ×2 (08:54→22:05)
[2023-12-02] MEDS: Benztropine Mesylate 1 MG TABLET 2 MG PO ×2 (08:54→22:05)
[2023-12-02] MEDS: Lidocaine 4 % Patch ADH..PATCH 2 PATCH TRANSDERMA (08:58)
[2023-12-02] MEDS: hydrOXYzine HCL 25 MG TABLET PO ×2 (12:39→18:33)
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
[2023-12-02] MEDS: chlorproMAZINE HCl 100 MG TABLET PO ×2 (18:33→22:05)
[2023-12-02 20:00] VITALS: BP 142/76; PULSE 96; RESP 16; TEMP 36.7; O2SAT 98
[2023-12-02] MEDS: diphenhydrAMINE HCL 25 MG CAPSULE 50 MG PO (22:05)
[2023-12-02] MEDS: Atorvastatin Calcium 80 MG TABLET PO (22:06)
[2023-12-03] MEDS: LORazepam 1 MG TABLET 2 MG PO (00:06)
[2023-12-03] MEDS: Acetaminophen 325 MG TABLET 650 MG PO ×2 (00:06→20:41)
[2023-12-03] MEDS: diphenhydrAMINE HCL 25 MG CAPSULE 50 MG PO ×2 (00:06→20:32)
[2023-12-03] MEDS: Ibuprofen 800 MG TABLET PO ×3 (00:07→16:10)
[2023-12-03 00:55] VITALS: PULSE 95; O2SAT 98
--- NOTE | 2023-12-03 00:57 | PC.NURSE ---
AT 0007, PT TOOK HIS CPAP MACHINE OFF AND SAID HE DID NOT WANT TO USE IT
[2023-12-03] MEDS: Levothyroxine Sodium 75 MCG TABLET PO (05:42)
[2023-12-03 08:00] VITALS: BP 141/66; PULSE 88; RESP 18; TEMP 36.3; O2SAT 100
[2023-12-03] MEDS: Metoprolol Succinate ER 25 MG TAB.ER.24H PO (08:53)
[2023-12-03] MEDS: Amoxicillin/Potassium Clav 875 MG TABLET PO ×2 (08:53→20:31)
[2023-12-03] MEDS: Lidocaine 4 % Patch ADH..PATCH 2 PATCH TRANSDERMA (08:54)
[2023-12-03] MEDS: Omeprazole 20 MG CAPSULE.DR PO (08:54)
[2023-12-03] MEDS: Divalproex Sodium ER 500 MG TAB.ER.24H 1000 MG PO ×2 (08:54→20:31)
[2023-12-03] MEDS: Lactulose 20 GM/30 ML SOLUTION PO (08:54)
[2023-12-03] MEDS: Benztropine Mesylate 1 MG TABLET 2 MG PO ×2 (08:54→20:32)
[2023-12-03] MEDS: hydrOXYzine HCL 25 MG TABLET PO ×2 (09:32→20:33)
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
[2023-12-03] MEDS: chlorproMAZINE HCl 100 MG TABLET PO ×2 (16:10→20:32)
[2023-12-03 20:00] VITALS: BP 142/90; PULSE 111; RESP 18; TEMP 36.6; O2SAT 95
[2023-12-03] MEDS: Atorvastatin Calcium 80 MG TABLET PO (20:31)
[2023-12-03] MEDS: OLANZapine 10 MG TABLET PO (20:32)
[2023-12-03] MEDS: Melatonin 3 MG TABLET 6 MG PO (20:41)
[2023-12-04] MEDS: Ibuprofen 800 MG TABLET PO (04:31)
[2023-12-04] MEDS: Levothyroxine Sodium 75 MCG TABLET PO (05:49)
[2023-12-04 08:00] VITALS: BP 144/70; PULSE 101; TEMP 36; O2SAT 96
[2023-12-04] MEDS: Lactulose 20 GM/30 ML SOLUTION PO (08:31)
[2023-12-04] MEDS: Divalproex Sodium ER 500 MG TAB.ER.24H 1000 MG PO ×2 (08:32→20:11)
[2023-12-04] MEDS: Benztropine Mesylate 1 MG TABLET 2 MG PO ×2 (08:32→20:12)
[2023-12-04] MEDS: Metoprolol Succinate ER 25 MG TAB.ER.24H PO (08:32)
[2023-12-04] MEDS: Amoxicillin/Potassium Clav 875 MG TABLET PO ×2 (08:32→20:12)
[2023-12-04] MEDS: Omeprazole 20 MG CAPSULE.DR PO (08:32)
[2023-12-04] MEDS: Cariprazine HCl 1.5 MG CAPSULE PO (08:32)
[2023-12-04] MEDS: Lidocaine 4 % Patch ADH..PATCH 2 PATCH TRANSDERMA (08:50)
[2023-12-04] MEDS: Acetaminophen 325 MG TABLET 650 MG PO (08:50)
[2023-12-04] MEDS: LORazepam 1 MG TABLET 2 MG PO ×2 (08:50→20:11)
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
[2023-12-04] MEDS: hydrOXYzine HCL 25 MG TABLET PO (15:54)
[2023-12-04 20:00] VITALS: BP 130/70; PULSE 87; RESP 18; TEMP 37.2; O2SAT 96
[2023-12-04] MEDS: diphenhydrAMINE HCL 25 MG CAPSULE 50 MG PO (20:12)
[2023-12-04] MEDS: chlorproMAZINE HCl 100 MG TABLET PO (20:12)
[2023-12-04] MEDS: Atorvastatin Calcium 80 MG TABLET PO (20:12)
[2023-12-04] MEDS: OLANZapine 10 MG TABLET PO (20:12)
[2023-12-05] MEDS: Levothyroxine Sodium 75 MCG TABLET PO (06:35)
[2023-12-05 07:30] VITALS: BP 134/91; PULSE 94; RESP 15; TEMP 36.7; O2SAT 100
[2023-12-05 08:31] LABS: MANUAL DIFF FLAG NO
[2023-12-05 08:33] LABS: Basophils Percent Auto 0.3 % (0-2); Eosinophils Absolute Auto 0.1 X10*3/uL (0.0-0.4); Eosinophils Percent Auto 1.1 % (0-4); Hematocrit 38.6 % (42.0-52.0); Hemoglobin 12.6 g/dl (14.0-18.0); Imm Gran Abs Auto 0.04 X10*3/uL (0.00-0.03); Imm Gran Pct Auto 0.5 % (0.0-0.4); Lymphocytes Absolute Auto 1.1 X10*3/uL (1.2-4.9); Lymphocytes Percent Auto 14.9 % (20-40); Mean Corpuscular HGB Conc 32.6 g/dl (31.0-36.0); Mean Corpuscular Hemoglobin 29.2 pg (27.0-33.0); Mean Corpuscular Volume 89.4 fL (80.0-98.0); Mean Platelet Volume 8.9 fL (9.4-12.4); Monocytes Absolute Auto 0.6 X10*3/uL (0.1-1.2); Monocytes Percent Auto 8.3 % (2-11); Neutrophils Absolute Auto 5.6 x10*3/uL (2.0-8.3); Neutrophils Percent Auto 74.9 % (45-73); Platelet Count 293 X10*3/uL (160-400); Red Blood Count 4.32 X10*6/uL (4.60-5.80); Red Cell Distribution Width 14.3 % (11.0-16.0); White Blood Count 7.5 X10*3/uL (4.8-10.8)
[2023-12-05 08:48] LABS: Valproate 40.1 mcg/mL (50.0-100.0)
[2023-12-05 08:52] LABS: Alanine Aminotransferase 19 U/L (0-40); Albumin Level 3.9 g/dL (3.5-5.0); Alkaline Phosphatase 43 U/L (39-117); Anion Gap 13 (12-20); Aspartate Amino Transferase 14 U/L (5-37); Bilirubin Total 0.3 mg/dL (0.0-1.0); Blood Urea Nitrogen 13 mg/dL (9-16); Calcium 9.4 mg/dL (8.4-10.2); Carbon Dioxide 29 mmol/L (22-29); Chloride 101 mmol/L (96-108); Estimated Glomerular Filt Rate > 60; Glucose Random 119 mg/dL (60-115); Potassium 4.2 mmol/L (3.3-5.1); Sodium 139 mmol/L (135-145); Total Protein 6.9 g/dL (6.5-8.0)
[2023-12-05] MEDS: Lidocaine 4 % Patch ADH..PATCH 2 PATCH TRANSDERMA (08:55)
[2023-12-05 08:56] VITALS: BP 164/91; PULSE 94
[2023-12-05] MEDS: Divalproex Sodium ER 500 MG TAB.ER.24H 1000 MG PO (08:56)
[2023-12-05] MEDS: Metoprolol Succinate ER 25 MG TAB.ER.24H PO (08:56)
[2023-12-05] MEDS: Omeprazole 20 MG CAPSULE.DR PO (08:56)
[2023-12-05] MEDS: Benztropine Mesylate 1 MG TABLET 2 MG PO ×2 (08:57→20:35)
[2023-12-05] MEDS: Cariprazine HCl 1.5 MG CAPSULE PO (08:57)
[2023-12-05] MEDS: hydrOXYzine HCL 25 MG TABLET PO ×3 (08:59→20:46)
[2023-12-05] MEDS: Ibuprofen 800 MG TABLET PO ×2 (09:10→20:47)
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
[2023-12-05] MEDS: Nicotine Polacrilex 2 MG GUM BUCCAL (12:20)
[2023-12-05] MEDS: LORazepam 1 MG TABLET 2 MG PO ×2 (17:19→20:47)
[2023-12-05 20:00] VITALS: BP 140/84; PULSE 84; RESP 15; TEMP 36.4; O2SAT 97
[2023-12-05] MEDS: Divalproex Sodium ER 250 MG TAB.ER.24H 1250 MG PO (20:34)
[2023-12-05] MEDS: diphenhydrAMINE HCL 25 MG CAPSULE 50 MG PO (20:35)
[2023-12-05] MEDS: OLANZapine 10 MG TABLET PO (20:35)
[2023-12-05] MEDS: Atorvastatin Calcium 80 MG TABLET PO (20:35)
[2023-12-06] MEDS: Levothyroxine Sodium 75 MCG TABLET PO (06:41)
[2023-12-06] MEDS: Nicotine Polacrilex 2 MG GUM BUCCAL ×2 (06:44→10:14)
[2023-12-06 07:51] VITALS: BP 151/93; PULSE 77; RESP 77; TEMP 36.4; O2SAT 100
[2023-12-06] MEDS: Lactulose 20 GM/30 ML SOLUTION PO (08:31)
[2023-12-06] MEDS: Metoprolol Succinate ER 25 MG TAB.ER.24H PO (08:32)
[2023-12-06] MEDS: Omeprazole 20 MG CAPSULE.DR PO (08:32)
[2023-12-06] MEDS: Benztropine Mesylate 1 MG TABLET 2 MG PO ×2 (08:32→20:05)
[2023-12-06] MEDS: Cariprazine HCl 1.5 MG CAPSULE PO (08:32)
[2023-12-06] MEDS: Divalproex Sodium ER 250 MG TAB.ER.24H 1250 MG PO ×2 (08:33→20:04)
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
[2023-12-06] MEDS: Lidocaine 4 % Patch ADH..PATCH 2 PATCH TRANSDERMA (11:33)
[2023-12-06] MEDS: hydrOXYzine HCL 25 MG TABLET PO ×2 (15:41→20:27)
[2023-12-06 20:00] VITALS: BP 162/81; PULSE 93; RESP 15; TEMP 36.6; O2SAT 98
[2023-12-06] MEDS: diphenhydrAMINE HCL 25 MG CAPSULE 50 MG PO (20:04)
[2023-12-06] MEDS: OLANZapine 10 MG TABLET PO (20:05)
[2023-12-06] MEDS: Atorvastatin Calcium 80 MG TABLET PO (20:05)
[2023-12-07] MEDS: LORazepam 1 MG TABLET 2 MG PO ×2 (01:12→20:52)
[2023-12-07] MEDS: Levothyroxine Sodium 75 MCG TABLET PO (06:34)
[2023-12-07 08:00] VITALS: BP 130/74; PULSE 91; RESP 20; TEMP 36.3; O2SAT 94
[2023-12-07] MEDS: Benztropine Mesylate 1 MG TABLET 2 MG PO ×2 (08:34→20:50)
[2023-12-07] MEDS: Cariprazine HCl 1.5 MG CAPSULE PO (08:34)
[2023-12-07] MEDS: Metoprolol Succinate ER 25 MG TAB.ER.24H PO (08:35)
[2023-12-07] MEDS: Divalproex Sodium ER 250 MG TAB.ER.24H 1250 MG PO ×2 (08:35→20:51)
[2023-12-07] MEDS: Omeprazole 20 MG CAPSULE.DR PO (08:35)
[2023-12-07] MEDS: Lactulose 20 GM/30 ML SOLUTION PO (08:36)
[2023-12-07] MEDS: Lidocaine 4 % Patch ADH..PATCH 2 PATCH TRANSDERMA (08:37)
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
[2023-12-07] MEDS: Ibuprofen 800 MG TABLET PO ×2 (10:06→20:53)
[2023-12-07 20:00] VITALS: BP 146/66; PULSE 90; RESP 18; TEMP 36.4; O2SAT 96
[2023-12-07] MEDS: Melatonin 3 MG TABLET 6 MG PO (20:50)
[2023-12-07] MEDS: diphenhydrAMINE HCL 25 MG CAPSULE 50 MG PO (20:51)
[2023-12-07] MEDS: hydrOXYzine HCL 25 MG TABLET PO (20:51)
[2023-12-07] MEDS: OLANZapine 10 MG TABLET PO (20:53)
[2023-12-07] MEDS: Atorvastatin Calcium 80 MG TABLET PO (20:53)
[2023-12-08] MEDS: chlorproMAZINE HCl 100 MG TABLET PO (01:17)
[2023-12-08] MEDS: Levothyroxine Sodium 75 MCG TABLET PO (06:15)
[2023-12-08 08:21] VITALS: BP 167/91; PULSE 91; RESP 15; TEMP 36.4; O2SAT 96
[2023-12-08] MEDS: Lactulose 20 GM/30 ML SOLUTION PO (08:25)
[2023-12-08] MEDS: Lidocaine 4 % Patch ADH..PATCH 2 PATCH TRANSDERMA (08:26)
[2023-12-08] MEDS: Divalproex Sodium ER 250 MG TAB.ER.24H 1250 MG PO (08:26)
[2023-12-08] MEDS: Cariprazine HCl 1.5 MG CAPSULE PO (08:26)
[2023-12-08] MEDS: Metoprolol Succinate ER 25 MG TAB.ER.24H PO (08:27)
[2023-12-08] MEDS: Omeprazole 20 MG CAPSULE.DR PO (08:27)
[2023-12-08] MEDS: Benztropine Mesylate 1 MG TABLET 2 MG PO (08:27)
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
== END 2023-12-08 11:32 | disposition home or self-care (01) | DRG 885 ==
PROVIDERS: Psychiatry & Neurology Psychiatry; Admitting Provider Clinical Nurse Specialist Psychiatric/Mental Health, Adult; Visit Provider Clinical Nurse Specialist Psychiatric/Mental Health, Adult
DX: F31.2 Bipolar disorder, current episode manic severe with psychotic features (principal); E87.1 Hypo-osmolality and hyponatremia; F17.210 Nicotine dependence, cigarettes, uncomplicated; Z71.6 Tobacco abuse counseling; G47.33 Obstructive sleep apnea (adult) (pediatric); E87.5 Hyperkalemia; Z20.822 Contact with and (suspected) exposure to COVID-19; Z79.890 Hormone replacement therapy; Z79.899 Other long term (current) drug therapy; E03.9 Hypothyroidism, unspecified
CPT/HCPCS: 0241U; 36415; 70150; 80048; 80053; 80061; 80076; 80164; 82140; 82607; 82746; 83036; 83735; 84439; 84443; 85025; 94660

== ENCOUNTER → 2023-11-27 12:59 | Outpatient (BNV) | payer MEDICARE, SELFPAY | PROVIDERS: Admitting Provider Clinical Nurse Specialist Psychiatric/Mental Health, Adult; Visit Provider Psychiatry & Neurology Psychiatry | DX: F31.2 Bipolar disorder, current episode manic severe with psychotic features (principal); G47.33 Obstructive sleep apnea (adult) (pediatric) | CPT/HCPCS: 90792; 99231; 99232; 99238; 99499 ==